=== PATIENT | male | born 1935 | race African-American/Black ===

== ENCOUNTER 2016-11-04 11:28 | Emergency (ER) | payer OTHER ==
[2016-11-04 11:35] VITALS: BP 157/81
[2016-11-04] MEDS ORDERED: BOOSTRIX VACCINE IM ONE (11:36)
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
--- NOTE | 2016-11-04 14:04 | Diag Imaging Result Document ---
PROCEDURE NAME: FINGER(S)-RIGHT - 11/04/2016 RIGHT INDEX FINGER, 3 VIEWS: There are degenerative changes. There is no fracture or dislocation identified. There is no opaque foreign body seen. IMPRESSION: Degenerative changes. No evidence of fracture or dislocation.
== END 2016-11-04 12:30 | disposition home or self-care (01) ==
LOC: P.ED 11:28
DX: S60.121A Contusion of right index finger with damage to nail, initial encounter (principal); S61.210A Laceration without foreign body of right index finger without damage to nail, initial encounter; I50.9 Heart failure, unspecified; I10 Essential (primary) hypertension; J44.9 Chronic obstructive pulmonary disease, unspecified; Z86.73 Personal history of transient ischemic attack (TIA), and cerebral infarction without residual deficits; W23.1XXA Caught, crushed, jammed, or pinched between stationary objects, initial encounter; Z23 Encounter for immunization; Z79.899 Other long term (current) drug therapy; F41.9 Anxiety disorder, unspecified; Z79.51 Long term (current) use of inhaled steroids; Z79.02 Long term (current) use of antithrombotics/antiplatelets; Z82.49 Family history of ischemic heart disease and other diseases of the circulatory system
CPT/HCPCS: 73140; 90471; 90715

== ENCOUNTER 2019-10-22 14:34 | Inpatient (IN) ==
[2019-10-22] MEDS ORDERED: AMIDATE IV ONE (15:00)
--- NOTE | 2019-10-22 15:04 | Diag Imaging Result Doc PS360 ---
EXAM: CT HEAD W/O CONTRAST HISTORY: mental status change TECHNIQUE: CT brain without contrast COMPARISON: 05/27/2019 FINDINGS: No parenchymal hemorrhage. No epidural or subdural hematoma. No subarachnoid hemorrhage. There are chronic microvascular ischemic changes and atrophy. No mass identified on this noncontrasted exam. No hydrocephalus. No sinus opacification. IMPRESSION: 1.No hemorrhage 2.Chronic microvascular ischemic changes and atrophy This exam was performed using automated exposure control, adjustment of mA or kV according to patient size, and/or use of iterative reconstruction technique. Electronically signed by Darryl Da Silva 10/22/2019 3:01 PM
[2019-10-22] MEDS ORDERED: AMIDATE ONE (15:09)
[2019-10-22] MEDS ORDERED: QUELICIN ONE (15:10)
[2019-10-22] MEDS ORDERED: DIPRIVAN 1% IV ONE (15:10)
[2019-10-22] MEDS: DIPRIVAN 1% 1,000 MG/100 ML BOTTLE IV SCH ×2 (15:25→21:55)
[2019-10-22 15:55] LABS: ALLEN TEST YES; BE -10.1 mmoll (-3.0-3.0); BLOOD TYPE ARTERIAL; HCO3-(ACT) 17.1 mmoll (20.0-26.0); O2(CT) 13.4 mL/dL (15.0-23.0); O2HB 97.1 % (95.0-99.0); PCO2(98.6) 31 mmHg (35-45); PO2(98.6) 233 mmHg (60-100); SAMPLE BLOOD; SAO2 99.3 % (95.0-100.0); SRATE 14 BPM; THB 9.4 g/dL (11.5-17.4); TVOL 550 mL
[2019-10-22 15:58] LABS: MODALITY VENTILATOR
[2019-10-22 16:09] LABS: URINE SOURCE CATH
[2019-10-22 16:14] LABS: BASO# 0.03 X1000 (0.0-0.2); BASO% 0.4 % (0.0-0.8); EOS# 0.02 X1000 (0.0-0.7); EOS% 0.3 % (0.0-10.0); HEMOGLOBIN 8.4 g/dL (14.0-18.0); LYMPH# 0.79 X1000 (1.2-3.4); LYMPH% 9.9 % (20.5-51.1); MCH 26.3 PG (27-31); MCHC 32.3 g/dL (33-37); MCV 81.5 FL (81-99); MONO# 0.32 X1000 (0.11-0.59); MPV 8.9 FL (7.4-10.4); NEUT# 6.83 X1000 (1.4-6.5); NEUT% 85.4 % (42.2-75.2); PLT 397 X1000 (130-400); RBC 3.19 XMIL (4.7-6.1); RDW 16.2 % (11.5-14.5); WBC 7.99 X1000 (4.8-10.8)
[2019-10-22 16:14] LABS: BILIRUBIN URINE NEGATIVE (NEGATIVE); BLOOD URINE SMALL (NEGATIVE); COLOR YELLOW; GLUCOSE URINE NEGATIVE (NEGATIVE); KETONE URINE NEGATIVE (NEGATIVE); LEUKOCYTES URINE NEGATIVE (NEGATIVE); NITRITE URINE NEGATIVE (NEGATIVE); PROTEIN URINE 300 mg/dL (NEGATIVE); SP GRAVITY URINE 1.017; TURBIDITY URINE CLEAR (CLEAR); UROBILINOGEN URINE NORMAL (NORMAL)
--- NOTE | 2019-10-22 16:20 | Diag Imaging Result Doc PS360 ---
EXAM: CHEST-PORTABLE HISTORY: intubation TECHNIQUE: Two views COMPARISON: 12/16/2017 FINDINGS: The lungs are well expanded. Endotracheal tube in good position. The heart is not enlarged. The vessels are not distended. There are no infiltrates. No effusion identified. IMPRESSION: The endotracheal tube is in good position. Electronically signed by Darryl Da Silva 10/22/2019 4:17 PM
[2019-10-22 16:41] LABS: UR EPITHELIAL CELLS <10 /HPF (<10); URINE BACTERIA NEGATIVE /HPF; URINE RBC <10 /HPF (<10); URINE WBC <10 /HPF (<10)
[2019-10-22 16:42] LABS: URINE CASTS NONE SEEN; URINE CRYSTALS NONE SEEN; URINE SMALL ROUND CELLS NONE SEEN; URINE YEAST NONE SEEN
[2019-10-22] MEDS ORDERED: QUELICIN IV ONE (16:42)
--- NOTE | 2019-10-22 16:51 | EKG Report ---
Test Performed on : 10/22/2019 4:43:34 PM Test Reason : ams Blood Pressure : / mmHG Vent. Rate : 090 BPM Atrial Rate : 090 BPM P-R Int : 190 ms QRS Dur : 122 ms QT Int : 442 ms P-R-T Axes : 081 -45 074 degrees QTc Int : 540 ms Normal sinus rhythm. Possible Left atrial enlargement Left anterior fascicular block Abnormal ECG When compared with ECG of 16-DEC-2017 09:12, premature atrial complexes. are no longer present Left anterior fascicular block is now present T wave amplitude has increased in Anterior leads QT has lengthened Unconfirmed Result
[2019-10-22 16:54] LABS: ALB/GLOB RATIO 1.1; ALBUMIN 3.8 g/dL (3.5-5.0); CALCIUM 5.8 mg/dL (8.8-10.2); CK INDEX 0.5 (0.0-2.5); CREATININE 10.8 mg/dL (0.7-1.2); INR 1.17; POTASSIUM 6.8 mmol/L (3.5-5.1); PROTIME 15.1 Seconds (11.0-16.0); PTT 28.4 Seconds (22.3-41.8); TOTAL BILIRUBIN 0.49 mg/dL (0.20-1.00); TOTAL PROTEIN 7.4 g/dL (6.3-8.3)
[2019-10-22] MEDS ORDERED: HUMULIN R IV ONE (16:58)
[2019-10-22] MEDS ORDERED: D50W 500 ML IV SCH (17:00)
[2019-10-22] MEDS ORDERED: NS 1,000 ML IV ONE (17:01)
[2019-10-22] MEDS ORDERED: LASIX IV ONE (17:01)
[2019-10-22] MEDS ORDERED: D50W SYRINGE IV ONE (17:15)
[2019-10-22] MEDS ORDERED: CALCIUM GLUCONATE IV PUSH ONE ×2 (17:24→21:34)
[2019-10-22] MEDS ORDERED: ALBUTEROL NEB INH ONE (17:26)
[2019-10-22] MEDS ORDERED: ALBUTEROL 0.5% INH CONC FOR HYPERKALEMIA INH ONE (17:32)
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
[2019-10-22] MEDS ORDERED: ZOFRAN IV PRN (18:25)
[2019-10-22] MEDS ORDERED: TYLENOL PO PRN (18:25)
[2019-10-22] MEDS ORDERED: CARDENE 40 MG/NS 40 MG/200 ML PIGGYBACK IV SCH (19:00)
[2019-10-22] MEDS ORDERED: CARDENE 20 MG/NS 20 MG/200 ML PIGGYBACK IV SCH (19:00)
--- NOTE | 2019-10-22 19:00 | HISTORY AND PHYSICAL ---
ADDENDUM: This is an addendum to the history and physical dictated by the nurse practitioner. I agree with most components of the history, physical, assessment and plan. In brief, Mr. Chapman is an 84-year-old man with past medical history of chronic kidney disease stage 5, chronic GERD, essential hypertension, COPD, benign prostatic hypertrophy, transient ischemic attack and gout, who is brought into the hospital by ambulance because of altered mental status. Apparently, the patient's sister found him altered. The patient lives with his who has Alzheimer dementia. In the emergency room when the patient arrived, he was found to be obtunded and had a right-sided gaze, so he was intubated for airway protection. The history is limited since the patient's sister is not available. I got some historical data after talking to the patient's brother on the phone. The patient is intubated, not responding. PHYSICAL EXAMINATION: VITAL SIGNS: Current temperature of 98.7 degrees, pulse 99, respiratory rate 16, blood pressure 180/110. He is saturating 100% on 30% mechanical ventilation. HEENT: On physical examination, he has pupils bilaterally briskly reacting to light. He has some crusting of dry blood around the right nostril. Oral cavity is moist. He has endotracheal tube. LUNGS: Air entry bilaterally equal. No wheeze, rhonchi or crackles. HEART: S1, S2 normal. Tachycardic. No murmur, rub or gallop. ABDOMEN: Scaphoid, soft, nontender. Active bowel sounds. EXTREMITIES: No lower extremity edema. GENITOURINARY: He has urine catheter. NEUROLOGICAL: On examination I could not appreciate an obvious facial droop, though he has endotracheal tube and his head is tilted towards the right. He is on propofol right now. He is withdrawing to painful stimuli in bilateral lower extremities. He is flickering bilateral lower extremities when I apply painful stimuli on the right upper extremity. He does not have any response on painful stimuli on the left lower extremity. I could not elicit biceps jerk in both upper extremities. His knee jerks are brisk bilaterally. Babinski has a plantar flexion bilaterally. LABORATORY DATA: Labs suggestive of hemoglobin of 8.4, platelets 97,000. His pH is 7.30, pO2 of 233, pCO2 of 31. He has hyperkalemia, elevated creatinine, hypocalcemia, elevated troponin and lactic acidosis. ASSESSMENT AND PLAN: 1. Acute encephalopathy, likely metabolic in the setting of profound uremia. Seizure due to uremia is also a possibility. Head CT was unremarkable; however, acute ischemic stroke is also a possibility. 2. Acute respiratory failure, likely because of acute encephalopathy and multiple metabolic derangement, status post intubation. Continue mechanical ventilation with propofol. 3. [id number] kidney disease, anion gap metabolic acidosis, hyperkalemia, hypocalcemia. We will consult Nephrology and we will give him insulin D50, albuterol, calcium gluconate, and followup stat repeat BMP. 4. Lactic acidosis, type 2 myocardial infarction. 5. Normocytic anemia. 6. Hypertension. 7. The patient's condition is critical. Forty minutes of critical care time was spent taking of this patient. I called the patient's brother and informed him about critical condition. Code status is Full Code. cc: Magno Wang MD
[2019-10-22] MEDS: PULMICORT INH SCH (19:18)
[2019-10-22] MEDS: ATROVENT NEB INH SCH ×2 (19:19→23:55)
[2019-10-22] MEDS: XOPENEX NEB INH SCH ×2 (19:19→23:54)
[2019-10-22 19:34] LABS: HEMOGLOBIN A1C 5.5 % (4.8-6.0)
[2019-10-22] MEDS ORDERED: MAGNESIUM SULFATE 2 GM/S.W.I. 2 GM/50 ML IVPB IV ONE (19:49)
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
--- NOTE | 2019-10-22 20:12 | NEPHROLOGY CONSULTATION ---
DATE: 10/22/2019 REASON FOR CONSULTATION: Hyperkalemia and renal failure. HISTORY OF PRESENT ILLNESS: Mr. Chapman is an 84-year-old man with peripheral vascular disease, hypertension and CKD. On his last encounter with us late last year, his creatinine was over 4 and we strongly urged him to pursue vein mapping and access placement. He defer that until after the first of the year. We have not seen him again. He currently is intubated and sedated. The ER notes suggest he came in with altered mental status, and he was found at home with right-sided gaze preference and overall decreased responsiveness. His initial evaluation found blood pressure of 204/120 with a heart rate of 105, respirations 16. He was afebrile. Because of his initial neurologic status and his medical illness, he was intubated. He received treatment with Lasix and insulin for a potassium of 6.8. BUN was 117, creatinine 10.8 with anion gap of 26. Initial imaging included chest x-ray and CT of the head. CT had only chronic changes. Chest x- ray: No infiltrates and no pulmonary edema is described. He does have cardiac enlargement. His initial EKG has peaked T-waves. I was contacted by phone approximately an hour and 15 minutes ago. The patient was subsequently treated with inhaled albuterol, and repeat labs and EKG were ordered. EKG is being performed at the time of my arrival, and his peaked T waves have resolved. I do not see that he received IV calcium in the initial resuscitation. He did receive IV fluid volume expansion. He did, in fact, receive a single ampule of calcium gluconate 1 g. PAST MEDICAL HISTORY: As above. MEDICATIONS: Home medications include clopidogrel, furosemide, dutasteride , clonidine, colchicine, alprazolam, dexamethasone, cyclobenzaprine, Augmentin, cetirizine, prednisone, trimethoprim sulfa and tramadol. These medicines are listed in the chart in the emergency room note. The date on the trimethoprim sulfa was from 12/15/2018. FAMILY HISTORY: Not otherwise obtainable. SOCIAL HISTORY: Not otherwise obtainable. REVIEW OF SYSTEMS: Not otherwise obtainable. PHYSICAL EXAMINATION: Blood pressure 180/112, heart rate 99, respirations 16, temperature 98.7 degrees. Generally, thin elderly black male, intubated and sedated. Having rigors. Conjunctivae are pink. Pupils are equal. Oropharynx not examined. External jugular veins are distended but the internal wave is not visible. Heart is irregular, but rate controlled. Mildly tachycardic. No rubs. Lungs have equal excursion, equal breath sounds. No crackles or wheezes. Abdomen is soft, with voluntary muscle use. There is a lower abdominal midline incision. Extremities have no edema, clubbing or cyanosis. IMPRESSION AND PLAN: Chronic kidney disease stage 5, complicated by hyperkalemia, metabolic acidosis and altered mental status. We will focus on his volume management and his potassium management. If he is stable overnight, we can consider dialysis if the family is agreeable to that. I have ordered repeated doses of intravenous insulin and inhaled albuterol for the overnight period. Repeat labs now and again at 8 p.m. I have reviewed the ordered medications. No changes are required at this time. I will treat his severe hypertension with nicardipine. cc: Chavez Garcia MD
[2019-10-22] MEDS: SOLU-MEDROL IV SCH (20:34)
[2019-10-22 21:39] LABS: ALBUMIN 2.9 g/dL (3.5-5.0); CALCIUM 5.4 mg/dL (8.8-10.2); CREATININE 9.6 mg/dL (0.7-1.2); PHOSPHORUS 5.5 mg/dL (2.7-4.5); POTASSIUM 5.4 mmol/L (3.5-5.1)
[2019-10-22] MEDS: HEPARIN SUBQ SCH (22:00)
[2019-10-22] MEDS ORDERED: ATIVAN IV PRN (22:26)
[2019-10-22] MEDS: KEPPRA 500 MG in NS 100 ML IV SCH (22:41)
[2019-10-22] MEDS: ALBUTEROL 0.5% INH CONC FOR HYPERKALEMIA INH SCH (22:45)
[2019-10-22] MEDS: D50W SYRINGE IV SCH (22:51)
[2019-10-22] MEDS: HUMULIN R IV SCH (22:56)
[2019-10-23] MEDS ORDERED: MAGNESIUM SULFATE 2 GM/S.W.I. 2 GM/50 ML IVPB IV ONE (00:30)
--- NOTE | 2019-10-23 02:16 | EKG Report ---
Test Performed on : 10/22/2019 6:07:09 PM Test Reason : chest pain Blood Pressure : / mmHG Vent. Rate : 133 BPM Atrial Rate : 133 BPM P-R Int : 000 ms QRS Dur : 080 ms QT Int : 334 ms P-R-T Axes : 000 -34 080 degrees QTc Int : 497 ms Atrial fibrillation. with rapid ventricular response. Left axis deviation Nonspecific ST and T wave abnormality Abnormal ECG When compared with ECG of 22-OCT-2019 18:05, (Unconfirmed) Atrial fibrillation. has replaced Sinus rhythm. Unconfirmed Result
[2019-10-23] MEDS: SOLU-MEDROL IV SCH (03:03)
[2019-10-23] MEDS: DIPRIVAN 1% 1,000 MG/100 ML BOTTLE IV SCH ×4 (03:04→23:31)
[2019-10-23] MEDS: ATROVENT NEB INH SCH ×6 (03:27→23:09)
[2019-10-23] MEDS: XOPENEX NEB INH SCH ×6 (03:27→23:09)
[2019-10-23 03:32] LABS: CALCIUM 5.8 mg/dL (8.8-10.2); CREATININE 10.2 mg/dL (0.7-1.2); POTASSIUM 5.9 mmol/L (3.5-5.1)
[2019-10-23] MEDS: HUMULIN R IV SCH ×3 (03:43→23:24)
[2019-10-23] MEDS: D50W SYRINGE IV SCH ×3 (03:43→23:24)
[2019-10-23] MEDS: ALBUTEROL 0.5% INH CONC FOR HYPERKALEMIA INH SCH ×3 (03:50→23:08)
[2019-10-23 04:34] LABS: ALLEN TEST YES; BE -12.9 mmoll (-3.0-3.0); BLOOD TYPE ARTERIAL; HCO3-(ACT) 14.9 mmoll (20.0-26.0); METHB 1.4 % (0.0-1.5); O2(CT) 9.7 mL/dL (15.0-23.0); O2HB 96.7 % (95.0-99.0); PCO2(98.6) 26 mmHg (35-45); PO2(98.6) 173 mmHg (60-100); SAMPLE BLOOD; SAO2 98.6 % (95.0-100.0); SRATE 16 BPM; THB 6.8 g/dL (11.5-17.4); TVOL 550 mL; pH(98.6) 7.29 (7.35-7.45)
[2019-10-23 04:40] LABS: MODALITY VENTILATOR
[2019-10-23 06:41] LABS: HEMATOCRIT 23.2 % (42.0-52.0); HEMOGLOBIN 7.5 g/dL (14.0-18.0); MCHC 32.3 g/dL (33-37); MCV 83.5 FL (81-99); MPV 9.1 FL (7.4-10.4); RBC 2.78 XMIL (4.7-6.1); RDW 16.4 % (11.5-14.5); WBC 8.08 X1000 (4.8-10.8)
[2019-10-23 07:06] LABS: ALB/GLOB RATIO 0.8; ALBUMIN 3.2 g/dL (3.5-5.0); CALCIUM 5.9 mg/dL (8.8-10.2); CREATININE 10.1 mg/dL (0.7-1.2); POTASSIUM 6.1 mmol/L (3.5-5.1); TOTAL BILIRUBIN 0.27 mg/dL (0.20-1.00); TOTAL PROTEIN 7.2 g/dL (6.3-8.3)
[2019-10-23] MEDS ORDERED: CALCIUM GLUCONATE 4.65 MEQ in NS 50 ML IV ONE ×2 (07:32→13:03)
[2019-10-23] MEDS ORDERED: HUMALOG IV ONE (07:37)
[2019-10-23] MEDS ORDERED: D50W SYRINGE IV ONE (07:37)
[2019-10-23] MEDS ORDERED: ALBUTEROL 0.5% INH CONC FOR HYPERKALEMIA INH ONE (07:37)
--- NOTE | 2019-10-23 07:52 | Diag Imaging Result Doc PS360 ---
EXAM: CHEST-PORTABLE - 10/23/2019 HISTORY: respiratory failure TECHNIQUE: Portable chest COMPARISON: 10/22/2019 FINDINGS: There is an endotracheal tube with its tip approximately 4.3 cm above the spenser, although the tip of the tube is partially obscured by overlying metallic snap. There is a nasogastric tube which can be followed to the proximal stomach, but the tip of the nasogastric tube is located below the bottom the image. Heart size is normal. The lungs appear essentially clear of acute changes. There is no pleural effusion or pneumothorax identified. IMPRESSION: No evidence of acute disease. Electronically signed by Bhanu Amezquita 10/23/2019 7:50 AM
[2019-10-23] MEDS: LACTULOSE NG SCH ×3 (08:21→20:07)
[2019-10-23] MEDS: KEPPRA 500 MG in NS 100 ML IV SCH (08:23)
[2019-10-23] MEDS: HEPARIN SUBQ SCH ×2 (08:23→20:08)
[2019-10-23] MEDS ORDERED: PRILOSEC NG ONE (09:12)
--- NOTE | 2019-10-23 09:40 | PROGRESS NOTE ---
DATE: 10/23/2019 INTERVAL HISTORY: No acute events overnight. He has been tachycardic with pulse of 115. He has been saturating well on 30% FiO2. His hyperkalemia and hypocalcemia are currently being treated. SUBJECTIVE: He is intubated, not responding. He is on propofol. VITALS: Temperature of 98.7 degrees, pulse 110, respiratory rate 20, blood pressure 124/71, he is saturating 100% on 30% FiO2. PHYSICAL EXAMINATION: Does not appear in acute distress. Pupils are bilaterally equal, briskly reacting. Oral cavity is moist. Lungs: Air entry bilaterally equal. No wheeze, rhonchi, or crackles. S1, S2 normal. Tachycardic. No murmur, rub, or gallop. Abdomen: Soft, scaphoid. Active bowel sounds. No lower extremity edema. He has a urine catheter, endotracheal tube. He is over-breathing the ventilator. He has good cough. He is withdrawing to painful stimuli, bilateral lower extremities. However, considering he has been on propofol, responses on the upper extremities have been inconsistent, though he did flicker on right upper extremity. LABORATORY DATA: Hemoglobin of 7.5, platelets 335,000. PH of 7.29, PO2 of 173, he is saturating 100%. Chemistry suggestive of hyperkalemia with potassium of 6.1, creatinine of 10.1, blood glucose 164, phosphorus of 6.5. Troponin is 194. MICROBIOLOGY: Blood culture and sputum culture are in lab. IMAGING: Chest x-ray this morning has no evidence of acute disease. ASSESSMENT AND PLAN: 1. Acute encephalopathy, likely metabolic due to profound uremia. Seizure due to uremia and cerebrovascular accident are also a possibility. Head CT on presentation was unremarkable. In the future, I may consider repeat head CT. Followup echocardiogram and ultrasound of carotids. I will start him on high-intensity statin and baby aspirin. I will keep him on propofol for mechanical ventilation as well as it may also help with his suspected seizure, if at all. 2. Acute respiratory failure because of acute encephalopathy, multiple metabolic derangement, status post intubation. Continue mechanical ventilation and propofol for sedation. I will add proton pump inhibitors for stress ulcer prophylaxis and continue heparin for deep venous thrombosis prophylaxis. 3. Acute on chronic kidney disease, anion gap metabolic acidosis, hyperkalemia, hypocalcemia. I will give additional insulin, D50, lactulose, albuterol inhalation. Follow up with repeat BMP. Appreciate nephrology recommendation for management of electrolyte disturbance. 4. Lactic acidosis, likely in the setting of multiple metabolic derangements. I will continue to monitor it. He has not been hypotensive. 5. Normocytic anemia due to chronic kidney disease, essential hypertension, currently stable. I will monitor CBC. He has been off nicardipine drip since yesterday night. 6. Type 2 myocardial infarction, likely in the setting of acute kidney injury and multiple metabolic derangements. His electrocardiogram did not have any ST elevations to suggest acute coronary syndrome. Continue to monitor him and follow up echocardiogram. I will stop Nicardipine drip since he hasn't required it for >12 hours now. 7. Disposition. I will continue to monitor patient in critical care. Plan of care was discussed with the patient's brother at bedside. All of his questions have been answered. Thirty-five minutes of critical care time have been spent in taking care of this patient. cc: Magno Wang MD MTDD
[2019-10-23] MEDS: PULMICORT INH SCH ×2 (11:48→19:51)
[2019-10-23 12:42] LABS: CALCIUM 6.1 mg/dL (8.8-10.2); CREATININE 11.2 mg/dL (0.7-1.2); POTASSIUM 5.4 mmol/L (3.5-5.1)
[2019-10-23] MEDS: PHOSLO NG SCH ×2 (13:45→17:12)
[2019-10-23] MEDS ORDERED: VANCOMYCIN IV PER PHARMACY MISC SCH (14:15)
--- NOTE | 2019-10-23 14:29 | NEPHROLOGY PROGRESS NOTE ---
DATE: 10/23/2019 SUBJECTIVE: He is sedated on the ventilator. Apparently had seizures early. OBJECTIVE: Vital Signs: Blood pressure 129/85, heart rate 116, respirations 16. Afebrile. General: Sedated, unresponsive. Pupils are equal, somewhat constricted. Corneal arcus present. Neck veins are not appreciated. Trachea is midline. Heart is regular. No rubs. Lungs: Equal. No crackles or wheezes. Abdomen: Soft, nontender. Bowel sounds diminished. No organomegaly. Extremities: 1+ edema. No clubbing or cyanosis. IMPRESSION: Chronic kidney disease stage 5. Complicated by acidosis and hyperkalemia. Hyperkalemia is improved. Acidosis is complicated with low-grade lactic acidosis as well as gap and non-gap components of a metabolic acidosis related to his renal failure, pH is 7.29 with appropriate compensation. I have spoken with the family. His sister Inell. She is the one that found him yesterday unresponsive and she stated he was "foaming at the mouth" and she felt that he just had a seizure. She states that he has never made any indication that he would not accept renal replacement therapy and they have a brother who also has renal failure and has been through transplantation after being on hemodialysis for years. I have spoken with Dr. Wesley who will help with access and we will begin with HERNAN tomorrow. I will use Lokelma through the day today and had a sodium bicarbonate drip. cc: Chavez Garcia MD
[2019-10-23] MEDS ORDERED: VANCOMYCIN 1 GM/NS 1 GM/250 ML IVPB IV SCH (16:00)
[2019-10-23] MEDS: SODIUM BICARBONATE 8.4% 150 MEQ in D5W 1,000 ML IV SCH (16:01)
[2019-10-23] MEDS: LOKELMA POWDER PACKET PO SCH ×2 (16:02→17:12)
[2019-10-23] MEDS: ASPIRIN NG SCH (16:19)
[2019-10-23] MEDS: CATAPRES NG SCH ×2 (16:19→20:08)
[2019-10-23] MEDS: LABETALOL IV PRN (16:26)
--- NOTE | 2019-10-23 16:58 | Diag Imaging Result Doc PS360 ---
EXAM: CHEST-PORTABLE - 10/23/2019 HISTORY: ETT tube placement TECHNIQUE: Portable chest COMPARISON: 10/23/2019 FINDINGS: There is an endotracheal tube with its tip located 5.5 cm above the spenser. The tip of the nasogastric tube is located below the bottom the image. The lungs appear essentially clear. There is no substantial pleural effusion or pneumothorax identified. Heart size is normal. IMPRESSION: Tip of endotracheal tube in satisfactory position 5.5 cm above the spenser. No acute changes otherwise. Electronically signed by Bhanu Amezquita 10/23/2019 4:55 PM
--- NOTE | 2019-10-23 17:02 | ECHO REPORT ---
ORDER DATE: 10/23/2019 INDICATION: Respiratory failure, congestive heart failure. FINDINGS: 1. Right heart structures are difficult to visualize. Overall appears to be normal RV systolic function. Right atrium difficult to visualize. Mild tricuspid regurgitation. Difficult evaluation of RV systolic pressure. 2. Left atrium appears normal in size. 3. There is no mitral valve prolapse. Mild mitral regurgitation. 4. The left ventricle appears to be normal in size with no obvious segmental abnormalities. This is difficult quality study but the ejection fraction is greater than 55%. There does not appear to be any evidence of left ventricular hypertrophy. 5. Aortic cusps are thickened but appear to open reasonably well. I do not see any significant degree of aortic insufficiency or suggestion of stenosis by Doppler. 6. Aorta appears normal in visualized segments. 7. No pericardial effusion seen. cc: MD Ena Mcgarry CRNP
--- NOTE | 2019-10-23 17:11 | EKG Report ---
Test Performed on : 10/23/2019 09:30:04 AM Test Reason : Follow up EKG for elevated troponins Blood Pressure : / mmHG Vent. Rate : 120 BPM Atrial Rate : 120 BPM P-R Int : 120 ms QRS Dur : 078 ms QT Int : 362 ms P-R-T Axes : 078 031 051 degrees QTc Int : 511 ms Sinus tachycardia. Moderate voltage criteria for LVH, may be normal variant Nonspecific ST and T wave abnormality Abnormal ECG When compared with ECG of 23-OCT-2019 04:07, (Unconfirmed) premature supraventricular complexes. are no longer present Nonspecific T wave abnormality now evident in Inferior leads Confirmed by Rinku Melgar MD ([id number]) on 10/25/2019 9:43:46 PM
--- NOTE | 2019-10-23 17:13 | EKG Report ---
Test Performed on : 10/23/2019 04:07:42 AM Test Reason : Blood Pressure : / mmHG Vent. Rate : 125 BPM Atrial Rate : 125 BPM P-R Int : 176 ms QRS Dur : 074 ms QT Int : 352 ms P-R-T Axes : 082 029 085 degrees QTc Int : 508 ms Sinus tachycardia. with premature supraventricular complexes. Nonspecific ST and T wave abnormality Abnormal ECG When compared with ECG of 22-OCT-2019 18:07, (Unconfirmed) Sinus rhythm. has replaced Atrial fibrillation. Unconfirmed Result
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
[2019-10-23 19:05] LABS: CREATININE 10.9 mg/dL (0.7-1.2); POTASSIUM 7.5 mmol/L (3.5-5.1)
[2019-10-23] MEDS: PERIDEX MT SCH (20:07)
[2019-10-23] MEDS: LIPITOR NG SCH (20:08)
[2019-10-23] MEDS: CALCIUM GLUCONATE 1 GM in NS 50 ML IV SCH ×2 (20:16→23:24)
[2019-10-24] MEDS: ATROVENT NEB INH SCH ×6 (03:35→23:08)
[2019-10-24] MEDS: XOPENEX NEB INH SCH ×6 (03:40→23:08)
[2019-10-24] MEDS: DIPRIVAN 1% 1,000 MG/100 ML BOTTLE IV SCH ×3 (03:50→21:43)
[2019-10-24] MEDS: SODIUM BICARBONATE 8.4% 150 MEQ in D5W 1,000 ML IV SCH ×2 (03:50→19:01)
[2019-10-24 04:37] LABS: ALLEN TEST YES; BE -6.3 mmoll (-3.0-3.0); BLOOD TYPE ARTERIAL; METHB 1.6 % (0.0-1.5); O2(CT) 8.7 mL/dL (15.0-23.0); O2HB 96.3 % (95.0-99.0); PCO2(98.6) 33 mmHg (35-45); PO2(98.6) 119 mmHg (60-100); SAMPLE BLOOD; SAO2 98.5 % (95.0-100.0); SRATE 16 BPM; THB 6.2 g/dL (11.5-17.4); TVOL 550 mL; pH(98.6) 7.36 (7.35-7.45)
[2019-10-24 04:38] LABS: MODALITY VENTILATOR
[2019-10-24 04:48] LABS: HEMOGLOBIN 6.3 g/dL (14.0-18.0); MCH 26.9 PG (27-31); MCHC 33.2 g/dL (33-37); MCV 81.2 FL (81-99); RBC 2.34 XMIL (4.7-6.1); RDW 16.4 % (11.5-14.5); WBC 12.18 X1000 (4.8-10.8)
[2019-10-24] MEDS: CALCIUM GLUCONATE 1 GM in NS 50 ML IV SCH (05:05)
[2019-10-24 05:28] LABS: ALBUMIN 2.8 g/dL (3.5-5.0); CALCIUM 6.7 mg/dL (8.8-10.2); CREATININE 10.8 mg/dL (0.7-1.2); MAGNESIUM 2.1 mg/dL (1.5-2.7); PHOSPHORUS 8.9 mg/dL (2.7-4.5); POTASSIUM 5.7 mmol/L (3.5-5.1)
[2019-10-24] MEDS: HUMULIN R IV SCH (05:33)
[2019-10-24] MEDS: D50W SYRINGE IV SCH (05:33)
[2019-10-24] MEDS: ALBUTEROL 0.5% INH CONC FOR HYPERKALEMIA INH SCH (05:51)
[2019-10-24] MEDS ORDERED: NS 2,000 ML MISC PRN (06:32)
[2019-10-24] MEDS: PRILOSEC NG SCH (06:46)
[2019-10-24] MEDS: PULMICORT INH SCH ×2 (08:24→19:55)
[2019-10-24] MEDS: PERIDEX MT SCH ×2 (09:00→21:44)
[2019-10-24] MEDS: LACTULOSE NG SCH ×2 (09:00→21:44)
[2019-10-24] MEDS ORDERED: NS 500 ML ONE (09:00)
[2019-10-24] MEDS: CATAPRES NG SCH ×2 (09:01→21:44)
[2019-10-24] MEDS: ASPIRIN NG SCH (09:01)
[2019-10-24] MEDS: LOKELMA POWDER PACKET PO SCH ×2 (09:01→13:28)
[2019-10-24] MEDS: PHOSLO NG SCH ×3 (09:01→17:36)
[2019-10-24] MEDS: HEPARIN SUBQ SCH ×2 (09:01→21:44)
[2019-10-24] MEDS ORDERED: XYLOCAINE 1%/EPI 1:100,000 ONE (09:56)
[2019-10-24] MEDS ORDERED: NS 250 ML ONE (09:56)
--- NOTE | 2019-10-24 10:14 | PROGRESS NOTE ---
DATE: 10/24/2019 INTERVAL HISTORY: No acute events overnight. SUBJECTIVE: Mr. Chapman is intubated, not in any acute distress. Yesterday, while performing echocardiogram, his ventilator got disconnected, and it looked like his endotracheal tube came out a couple of centimeters. A chest x-ray was done, which had suggested the endotracheal tube was still in the trachea, about 4 cm from the spenser. He has been saturating well. OBJECTIVE: Vital Signs: Temperature 97.3 degrees, pulse 94, respiratory rate 16, blood pressure 129/74, he is saturating 100% on 30% FiO2. General: Does not appear in any acute distress. HEENT: Oral cavity is moist. Lungs: Air entry bilaterally equal. No wheeze, rhonchi, crackles. Cardiovascular: S1, S2 normal. Not tachycardic. No murmur or gallop. Abdomen: Soft, scaphoid. Active bowel sounds. No hepatosplenomegaly. Extremities: No lower extremity edema. He has endotracheal tube, urine catheter, and NG tube. He is occasionally over breathing the ventilator. Neurologic: Pupils are bilaterally briskly reacting to light. Corneal reflex is present both eyes. He has intact cough. He is withdrawing to painful stimuli, bilateral upper and lower extremities. His biceps and knee jerks are 1+. Babinski response was inconsistent. LABORATORY DATA: WBC of 12,000, hemoglobin of 6.3, platelets 260,000. His pH is 7.36, PO2 of 119, pCO2 of 33. He continues to have elevated creatinine of 10.8, hypocalcemia of 6.7. MICROBIOLOGY: One of the two blood cultures is growing gram-positive cocci. The final report is pending. IMAGING: No new imaging today. ASSESSMENT AND PLAN: 1. Acute encephalopathy on presentation, likely metabolic due to profound uremia. Seizures due to uremia and cerebrovascular accident are also a possibility, though head CT on presentation was unremarkable. Follow up echocardiogram and ultrasound of carotids. Continue low-dose aspirin and high-intensity statin. Based on his course, he may need a repeat CT scan in the next 24 to 48 hours if his mental status does not improve. 2. Acute respiratory failure because of acute encephalopathy and multiple metabolic derangements. He was intubated in the emergency room. Continue mechanical ventilation and sedation with intravenous propofol. Continue heparin for deep venous thrombosis prophylaxis, and proton pump inhibitors for stress ulcer prophylaxis, and chlorhexidine for ventilator-associated pneumonia prophylaxis. 3. Acute on chronic kidney disease stage 5, anion gap metabolic acidosis, hyperkalemia, hypocalcemia, and hyperphosphatemia. Continue intravenous bicarbonate drip as per Nephrology recommendation. I started him on calcium acetate through nasogastric tube. He is likely to undergo dialysis catheter placement later today. Appreciate Nephrology recommendation. 4. Gram-positive bacteremia. Only 1 of the 2 cultures were positive. I will follow up final results. Continue intravenous vancomycin dosed per pharmacy. 5. Normocytic anemia due to chronic kidney disease. His hemoglobin dropped. Nephrology team has already ordered him on blood transfusion. I will follow up with daily CBC. 6. Essential hypertension. Continue his home clonidine and intravenous labetalol as needed. 7. Type 2 myocardial infarction on presentation. His electrocardiogram did not have acute ST elevation or significant ischemia-related changes. I will continue to monitor him. Follow up with echocardiogram. 8. Disposition. Mr. Chapman' condition remains critical. 35 minutes of critical care time was spent in taking care of this patient. I will start him on tube feeds. Considering uremic seizure was one of the possibilities, I would keep him on intravenous propofol until he gets dialysis or if we plan a spontaneous breathing trial. Yesterday, I had a detailed discussion about his critical condition with his brother at bedside. All of his questions were satisfactorily answered. cc: Magno Wang MD [facility]
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
--- NOTE | 2019-10-24 15:49 | PROVIDER PROGRESS NOTE ---
Progress Note Subjective: he remains intubated and sedated. He has a fine tremor to the right arm every few seconds. No family at bedside. Objective: 97.0, pulse 96, respirations 16, blood pressure 117/64, O2 sat 100% on 30% FiO2 mechanical ventilation. General: elderly -[place]ian male lying in bed in no acute distress. HEENT: normocephalic, atraumatic. Pupils equal and reactive, Arcus senilis to OU. Mucous membranes dry. Trachea midline. Skin: warm and dry. Neck: supple, no JVD observed. Cardiovascular: distance heart tones noted to the mediastinum. S1S2, regular rate and rhythm. No murmur or gallop noted. Respiratory: lung sounds clear anteriorly. Abdomen: soft, nontender, nondistended. HypoActive bowel sounds noted. : Non inspected, mcelroy in place. Extremities: Right upper extremity edema with Trace edema to hips. Neurological: sedated Labs: WBC 12.18, hemoglobin 6.3, hematocrit 19.0, platelet count 260, sodium 144, potassium 5.7, chloride 104, carbon dioxide 17, BUN 114, creatinine 10.8, calcium 6.7, albumin 2.8. Intake 2379, output 390. Impression: Chronic kidney disease stage 5. Complicated by acidosis and hyperkalemia. He is scheduled to have a tunneled catheter placed today where he will start slow low efficiency Dialysis with a 2 L ultrafiltration attempt in eight hours. Hyperkalemia. Lokelma in place. SLED today for helping management. Blood pressure. In target. Fluid volume. Euvolemic. Anemia. 2 units PRBC ordered. Anion gap acidosis. Sodium bicarbonate drip in place. Nutrition. Defer to primary. Medication review. Phoslo started. Lactulose?
[2019-10-24] MEDS: LIPITOR NG SCH (21:44)
--- NOTE | 2019-10-25 00:49 | OPERATIVE NOTE ---
PROCEDURE DATE: 10/24/2019 PREOPERATIVE DIAGNOSIS: End-stage renal disease. POSTOPERATIVE DIAGNOSIS: End-stage renal disease. PROCEDURE PERFORMED: Ultrasound-guided right internal jugular vein port placement with fluoroscopy less 1 hour. ESTIMATED BLOOD LOSS: 10 mL. SPECIMEN: None. ANESTHESIA: General. OPERATIVE FINDINGS: 1. Ultrasound of the right neck showed a large internal jugular vein with no evidence of intraluminal thrombus. 2. Final fluoroscopic image showed good position of the catheter in the superior vena cava-atrial junction with no kinking of the catheter. INDICATIONS: A gentleman who is progressed towards end-stage renal disease, has volume overload and needs urgent dialysis. The risks, benefits and alternatives were discussed with the patient's family and they elected to proceed. Initially they were unavailable, but the family did consent to the procedure prior to going to the operating room. DESCRIPTION OF PROCEDURE: He was taken to the operating room and positioned on the OR table. His bilateral neck and chest was prepped with Betadine and draped in the usual fashion. After a time- out focused ultrasound of the right neck was performed. He was placed in Trendelenburg and we accessed the vein on the first pass. Dark nonpulsatile venous blood was noted on return, the wire threaded easily and was confirmed to course directly in the vein with the ultrasound. We confirmed on that it was on the right side of the heart with fluoroscopy. At this point an 18 cm curve tipped catheter was chosen and tunneled between the incision in the chest and the incision made large in the neck. We serially dilated the tract, ending with a peel-away sheath, and the catheter was advanced and it was continued to be in good position. We confirmed both ports, withdrew blood and flushed without resistance. It was in good position. There was no evidence of pneumothorax, and there was no other complication. It was secured with nylon suture. Both incisions were closed with 4-0 Monocryl. Dermabond and Tegaderm was applied. No complications. He was transferred back to the ICU on the ventilator. cc: Flavio Barba MD
[2019-10-25] MEDS: DIPRIVAN 1% 1,000 MG/100 ML BOTTLE IV SCH ×3 (01:38→10:35)
[2019-10-25] MEDS: XOPENEX NEB INH SCH ×6 (03:39→22:35)
[2019-10-25] MEDS: ATROVENT NEB INH SCH ×6 (03:39→22:35)
[2019-10-25 04:48] LABS: ALLEN TEST YES; BE 0.3 mmoll (-3.0-3.0); BLOOD TYPE ARTERIAL; HCO3-(ACT) 25.2 mmoll (20.0-26.0); PCO2(98.6) 38 mmHg (35-45); PO2(98.6) 109 mmHg (60-100); SAMPLE BLOOD; SRATE 16 BPM; TVOL 550 mL; pH(98.6) 7.42 (7.35-7.45)
[2019-10-25 04:50] LABS: MODALITY VENTILATOR
[2019-10-25] MEDS: PRILOSEC NG SCH (06:13)
[2019-10-25 06:20] LABS: HEMATOCRIT 25.8 % (42.0-52.0); HEMOGLOBIN 8.5 g/dL (14.0-18.0); MCH 27.4 PG (27-31); MCHC 32.9 g/dL (33-37); MCV 83.2 FL (81-99); MPV 10.1 FL (7.4-10.4); RBC 3.1 XMIL (4.7-6.1); WBC 10.05 X1000 (4.8-10.8)
[2019-10-25] MEDS ORDERED: NS 2,000 ML MISC PRN (06:24)
--- NOTE | 2019-10-25 06:37 | Diag Imaging Result Doc PS360 ---
EXAM: CHEST-PORTABLE HISTORY: abnormal exam TECHNIQUE: Single view COMPARISON: 10/23/2019 FINDINGS: No change in the endotracheal tube or the nasogastric tube. A double lumen right jugular line has been placed. The tip is near the right atrium. No pneumothorax. No cardiomegaly. No pulmonary edema. No consolidation. No effusions identified. IMPRESSION: No postprocedural pneumothorax. Electronically signed by Darryl Da Silva 10/25/2019 6:35 AM
--- NOTE | 2019-10-25 06:53 | PULMONOLOGY PROGRESS NOTE ---
DATE: 10/24/2019 SUBJECTIVE: The patient is poorly responsive but is on sedation. He has not yet undergone dialysis. OBJECTIVE: Vital Signs: BP 120/68, heart rate 98, respiratory rate 16, oxygen saturation 100%. HEENT: Pupils are equal. Oropharynx appears clear. Neck is supple. Chest reveals coarse crackles bilaterally. Cardiac Examination: S1, S2. Abdomen is soft. Extremities are without edema. Laboratories: Arterial blood gas reveals a pH of 7.36, pCO2 of 33, PO2 of 119, with a normal lactate. White blood count 12.18, hemoglobin 6.3, platelet count 260,000. Sodium 144, potassium 5.7, chloride 104, bicarbonate 10, BUN 114, creatinine 10.8. IMPRESSION: An 84-year-old with: 1. Acute hypoxemic respiratory failure. 2. Acute on chronic kidney disease. 3. Metabolic encephalopathy. 4. Hyperkalemia. 5. Anemia. PLAN: 1. Continue mechanical ventilation pending dialysis and improvement in mental status. 2. Anticipate transfusing 2 units of packed red blood cells today. 3. Initiate hemodialysis per Dr. Garcia. 4. Guarded prognosis, given age. TIME SPENT IN CRITICAL CARE MANAGEMENT: 35 minutes. cc: Ruben Marte MD
[2019-10-25 07:19] LABS: ALBUMIN 2.8 g/dL (3.5-5.0); CREATININE 5.1 mg/dL (0.7-1.2); MAGNESIUM 1.6 mg/dL (1.5-2.7); PHOSPHORUS 4.5 mg/dL (2.7-4.5); POTASSIUM 5.4 mmol/L (3.5-5.1)
[2019-10-25 07:45] LABS: CALCIUM 6.8 mg/dL (8.8-10.2)
[2019-10-25] MEDS ORDERED: VANCOMYCIN 1 GM/NS 1 GM/250 ML IVPB IV ONE (08:00)
[2019-10-25] MEDS: PULMICORT INH SCH ×2 (08:00→20:06)
[2019-10-25] MEDS ORDERED: VANCOMYCIN 1 GM/NS 1 GM/250 ML IVPB IV SCH (08:00)
[2019-10-25] MEDS: HEPARIN SUBQ SCH ×2 (09:14→21:00)
[2019-10-25] MEDS: PERIDEX MT SCH ×2 (09:14→21:01)
[2019-10-25] MEDS: LACTULOSE NG SCH ×2 (09:14→21:01)
[2019-10-25] MEDS: PHOSLO NG SCH ×3 (09:15→16:19)
[2019-10-25] MEDS: ASPIRIN NG SCH (09:15)
[2019-10-25] MEDS: CATAPRES NG SCH ×2 (09:15→21:00)
[2019-10-25] MEDS: SODIUM BICARBONATE 8.4% 150 MEQ in D5W 1,000 ML IV SCH (10:35)
[2019-10-25 14:44] LABS: HEPATITIS PROFILE ACUTE SEE COMMENTS
[2019-10-25 16:21] LABS: ALLEN TEST YES; BE 1.4 mmoll (-3.0-3.0); BLOOD TYPE ARTERIAL; METHB 1.3 % (0.0-1.5); O2HB 95.4 % (95.0-99.0); PCO2(98.6) 32 mmHg (35-45); PO2(98.6) 76 mmHg (60-100); SAMPLE BLOOD; THB 10.4 g/dL (11.5-17.4); pH(98.6) 7.49 (7.35-7.45)
[2019-10-25 16:22] LABS: MODALITY VENTILATOR
[2019-10-25] MEDS: LABETALOL IV PRN (16:49)
[2019-10-25] MEDS ORDERED: COREG PO ONE (17:42)
--- NOTE | 2019-10-25 20:25 | PROVIDER PROGRESS NOTE ---
Progress Note Subjective: he remains intubated and sedated. No family at bedside. Objective: temperature 98.2, pulse 108, respiration 16, blood pressure 104/80, 02 sat 100% on 30% FiO2 mechanical ventilation. General: elderly -Algerian male lying in bed in no acute distress. HEENT: normocephalic, atraumatic. Pupils equal and reactive, Arcus senilis to OU. Mucous membranes dry. Trachea midline. Skin: warm and dry. Neck: supple, 6-8 cm JVD observed. Cardiovascular: distance heart tones noted to the mediastinum. S1S2, regular rate and rhythm. No murmur or gallop noted. Respiratory: lung sounds clear anteriorly. Abdomen: soft, nontender, nondistended. HypoActive bowel sounds noted. : Non inspected, mcelroy in place. Extremities: Right upper extremity pitting edema with Trace edema to hips and left arm. Neurological: sedated Labs: WBC 10.05, hemoglobin 8.5, hematocrit 25.8 sodium 134, potassium 5.4, chloride 97, carbon dioxide 23, BUN 45, creatinine 5.1, calcium 6.8. Intake 3672, output 1565. Impression: Chronic kidney disease stage 5. Patient had an 1140 mL ultrafiltration with sled yesterday. We will attempt SLED again today with a 3k bath and attempt a 4 L ultrafiltration. Hyperkalemia. Stop mirianut. SLED today for helping management. We will use a 3k bath instead of a 4K bath. Blood pressure. In target. Fluid volume. Euvolemic. Anemia. 2 units PRBC transfused yesterday Anion gap acidosis. Sodium bicarbonate drip in place. Nutrition. Defer to primary. Medication review. No changes
--- NOTE | 2019-10-25 20:28 | PROGRESS NOTE ---
DATE: 10/25/2019 SUBJECTIVE: The patient is undergoing a weaning trial. OBJECTIVE: Vital Signs: Temperature 98.8 degrees, blood pressure 165/102, heart rate 102, respirations 18, O2 saturation 98% on the mechanical ventilator. General: This is a chronically ill-appearing male currently on the ventilator. Heart: S1, S2 normal. Tachycardic. Lungs: Equal air entry bilaterally. No wheezing. No rales. Abdomen: Positive bowel sounds. Soft, nontender, nondistended. Extremities: 1+ edema bilaterally. Neurologic: The patient opens his eyes. LABORATORY DATA: White blood cell count 10, hemoglobin 8.5, hematocrit 25 platelets 230,000. Sodium 134, potassium 5.4, chloride 97, CO2 23, BUN 45, creatinine 5.1, glucose 95, calcium 6.8. IMAGING: Chest x-ray: No consolidations, no effusions. ASSESSMENT AND PLAN: 1. Acute hypoxemic respiratory failure. The patient is currently undergoing a weaning trial for possible extubation. Management as per Dr. Marte. 2. Chronic kidney disease stage 5. The patient was started on SLED today. Management as per Dr. Garcia. 3. Metabolic acidosis. Improved. Continue to monitor closely. 4. Bacteremia secondary to Streptococcus mitis. One bottle of the blood cultures grew out this organism. The other remains negative. We will repeat the blood cultures. 5. Elevated troponin. Aware. Continue on the current cardiac medications. 6. Uncontrolled hypertension. The patient will need adjustment of his antihypertensive regimen. We will add Coreg twice a day. 7. Nutrition. The patient is currently on tube feeds. 8. Deep vein thrombosis prophylaxis. Continue on heparin. cc: Rosa Uriarte MD
[2019-10-25] MEDS: LIPITOR NG SCH (21:01)
--- NOTE | 2019-10-25 21:40 | PULMONOLOGY PROGRESS NOTE ---
DATE: 10/25/2019 INTERIM HISTORY: Patient was evaluated earlier this morning. He was on sedation. He was placed on a spontaneous breathing trial, but was on dialysis. Propofol was continued until dialysis was complete. Propofol was discontinued and arterial blood gas was performed. The patient was squeezing hands and following commands. The patient was extubated. He is arousable to alert. He remains weak and has a poor cough effort. OBJECTIVE: Vital Signs: The patient has been afebrile for the last 24 hours. Blood pressure 140/95, heart rate 103, respiratory rate 21, oxygen saturation 96%. HEENT: Pupils are equal and reactive. Oropharynx appears clear. Neck: Supple. Chest: Reveals occasional rhonchi bilaterally. Cardiac: S1-S2. Abdomen: Soft. Extremities: Without edema. LABORATORIES: Chest x-ray is clear. Arterial blood gas following breathing trial, pH 7.49, pCO2 of 32, PO2 of 76. White blood count 10.05, hemoglobin 8.5, platelet count 230,000. IMPRESSION: An 84-year-old with 1. Acute hypoxemic respiratory failure. 2. Acute on chronic kidney disease. Dialysis has been initiated. 3. Metabolic encephalopathy. 4. Hyperkalemia. 5. Anemia with improvement following blood transfusions. PLAN: 1. Extubation today (this has been completed as outlined above). 2. Continue bronchial hygiene. 3. Dialysis per nephrology. TIME SPENT: In critical care management 35 minutes. cc: Ruben Marte MD
[2019-10-26] MEDS: XOPENEX NEB INH SCH ×6 (03:19→22:35)
[2019-10-26] MEDS: ATROVENT NEB INH SCH ×6 (03:19→22:35)
[2019-10-26] MEDS: SODIUM BICARBONATE 8.4% 150 MEQ in D5W 1,000 ML IV SCH ×2 (03:24→17:40)
[2019-10-26 04:39] LABS: ALLEN TEST YES; BE 2.1 mmoll (-3.0-3.0); BLOOD TYPE ARTERIAL; HCO3-(ACT) 26.5 mmoll (20.0-26.0); METHB 1.7 % (0.0-1.5); O2(CT) 15.7 mL/dL (15.0-23.0); O2HB 94.4 % (95.0-99.0); PCO2(98.6) 34 mmHg (35-45); PO2(98.6) 79 mmHg (60-100); SAMPLE BLOOD; SAO2 97.4 % (95.0-100.0); THB 11.8 g/dL (11.5-17.4); pH(98.6) 7.48 (7.35-7.45)
[2019-10-26 04:40] LABS: MODALITY COOL AEROSOL
[2019-10-26] MEDS: PRILOSEC NG SCH (06:13)
[2019-10-26 07:04] LABS: HEMATOCRIT 30.7 % (42.0-52.0); HEMOGLOBIN 10.1 g/dL (14.0-18.0); MCH 27.8 PG (27-31); MCHC 32.9 g/dL (33-37); MCV 84.6 FL (81-99); MPV 10.9 FL (7.4-10.4); RBC 3.63 XMIL (4.7-6.1); RDW 16.2 % (11.5-14.5); WBC 11.99 X1000 (4.8-10.8)
--- NOTE | 2019-10-26 07:17 | Diag Imaging Result Doc PS360 ---
EXAM: CHEST-PORTABLE 10/26/2019 HISTORY: dyspnea TECHNIQUE: AP portable at 0524 COMMENT: There is a double-lumen right internal jugular catheter with its tip in the superior vena cava just above the right atrium. There is an NG tube passing into the stomach. The heart size is within normal limits. There is ill-defined opacity in the right lower lobe which was not present on 10/25/2019. IMPRESSION: Right lower lobe pneumonia. Electronically signed by Stephen Rouse 10/26/2019 7:14 AM
[2019-10-26 07:58] LABS: ALBUMIN 2.9 g/dL (3.5-5.0); CALCIUM 7.6 mg/dL (8.8-10.2); MAGNESIUM 1.4 mg/dL (1.5-2.7); PHOSPHORUS 4.1 mg/dL (2.7-4.5); POTASSIUM 5.6 mmol/L (3.5-5.1)
[2019-10-26] MEDS: PULMICORT INH SCH ×2 (08:15→19:59)
[2019-10-26] MEDS ORDERED: MAGNESIUM SULFATE 1 GM/D5W 1 GM/100 ML IVPB IV ONE (08:27)
[2019-10-26] MEDS: HEPARIN SUBQ SCH ×2 (08:39→22:09)
[2019-10-26] MEDS: PERIDEX MT SCH ×2 (08:39→22:09)
[2019-10-26] MEDS: LACTULOSE NG SCH ×2 (08:39→22:10)
[2019-10-26] MEDS: PHOSLO NG SCH ×3 (08:41→17:40)
[2019-10-26] MEDS: COREG PO SCH ×2 (08:41→22:09)
[2019-10-26] MEDS: ASPIRIN NG SCH (08:41)
[2019-10-26] MEDS: CATAPRES NG SCH ×2 (08:41→22:09)
--- NOTE | 2019-10-26 16:34 | PROVIDER PROGRESS NOTE ---
Progress Note Subjective: He has been extubated and is on an oxygen mask. Drowsy, follows some commands. Able to speak 1 or 2 words. Objective: temperature 99.1, pulse 106, respirations 18, blood pressure 136/83, O2 sat 100% on 10 L oxygen mask. General: elderly -[place] African male lying in bed in no acute distress. HEENT: normocephalic, atraumatic. Pupils equal and reactive, Arcus senilis to OU. Mucous membranes dry. Trachea midline. Skin: warm and dry. Neck: supple, 6cm JVD observed. Cardiovascular: distance heart tones noted. S1S2, regular rate and rhythm. No murmur or gallop noted. Respiratory: lung sounds coarse anteriorly. Abdomen: soft, nontender, nondistended. Active bowel sounds noted. : Non inspected, mcelroy in place. Extremities: Right upper extremity pitting edema with Trace edema to hips and left arm. Neurological: Drowsy, unable to assess orientation. Labs: WBC 11.99, hemoglobin 10.1, hematocrit 30.7, platelet count 234, sodium 138, potassium 5.6, chloride 99, carbon dioxide 23, BUN 22, creatinine 3.0 calcium 7.6, albumin 2.9. Intake 2748, output 4230. Impression: Chronic kidney disease stage 5. Patient had a 4L ultrafiltration with sled yesterday without complications. We will hold off on SLED today and assess tomorrow. Hyperkalemia. Manage with dialysis tomorrow. Blood pressure. In target. Fluid volume. Euvolemic. Anemia. Stable. Acid base balance. Stable. Nutrition. Tube feeding in place. Medication review. Coreg increased.
[2019-10-26] MEDS ORDERED: AZACTAM 1 GM in NS 50 ML IV ONE (17:53)
--- NOTE | 2019-10-26 18:28 | PROGRESS NOTE ---
DATE: 10/26/2019 SUBJECTIVE: The patient is resting comfortably. He was extubated yesterday. He is somewhat lethargic this morning and will answer yes or no, but falls asleep quickly. OBJECTIVE: Vital Signs: Temperature 98.6 degrees, blood pressure 125/91, heart rate 104, respirations 15, O2 saturation is 99% on a Venturi mask. General: This is a chronically ill- appearing elderly male lying in bed, in no acute distress. Heart: S1, S2 normal. Tachycardic. Lungs: Equal air entry bilaterally. No wheezing. No rales. Abdomen: Positive bowel sounds. Soft, nontender, nondistended. Extremities: Trace pedal edema. Neurologic: The patient is lethargic. He is able to move all 4 extremities. LABS: White blood cell count 11, hemoglobin 10, hematocrit 30, platelets 234,000. ABG, pH 7.48, pCO2 34, PO2 79, bicarb 26. Sodium 138, potassium 5.6, chloride 99, CO2 23, BUN 22, creatinine 3, glucose 80, magnesium 1.4. Chest x-ray shows a right lower lobe pneumonia. ASSESSMENT AND PLAN: 1. Acute hypoxemic respiratory failure status post extubation. 2. Possible right lower lobe pneumonia. The patient is receiving vancomycin. We will add Azactam and order a sputum culture. We will also check a procalcitonin level. 3. Chronic kidney disease stage 5D. Management as per the casing finisher and stuffer. 4. Bacteremia secondary to Streptococcus mitis. We will await the results of the repeat blood cultures. The patient remains on antibiotic therapy. 5. Hypertension. Improved. Continue on the current antihypertensive regimen. 6. Elevated troponin. Aware. 7. Nutrition. The patient's tube feeds were stopped yesterday prior to extubation. The patient was too sleepy today to undergo a swallow evaluation. The patient may need IDPN or to resume tube feeds. 8. Anemia. Stable. 9. Hyperkalemia. Unchanged. This will be addressed during the patient's next dialysis session. 10. Hypomagnesemia. We will replace the patient's magnesium. 11. Constipation. We will start the patient on Dulcolax. He has an NG tube. Will also add Colace. 12. Deep vein thrombosis prophylaxis. Continue on heparin. cc: MD BUZZ Baugh
[2019-10-26] MEDS: LIPITOR NG SCH (22:09)
[2019-10-26] MEDS: DULCOLAX PR SCH (22:10)
--- NOTE | 2019-10-26 22:22 | PULMONOLOGY PROGRESS NOTE ---
DATE: 10/26/2019 SUBJECTIVE: The patient is awake and alert. He has a weak cough effort. He has no increased work of breathing. OBJECTIVE: Vital Signs: Maximum temperature in the last 24 hours is 100.3 degrees, blood pressure 152/91, heart rate 104, respiratory rate 15, oxygen saturation 100%. HEENT: Pupils are equal and reactive. Oropharynx appears clear. Neck: Is supple. Chest: Reveals shallow breath sounds bilaterally. Cardiac exam: S1-S2. Abdomen: Is soft. Extremities: Without edema. LABORATORIES: Chest x-ray reveals faint infiltrate at the right base. Sputum culture reveals no new data. White blood count 11.99, hemoglobin 10.1, platelet count 234,000 arterial blood gas, pH 7.48, pCO2 of 34, PO2 of 79. IMPRESSION: An 84-year-old with 1. Acute hypoxemic respiratory failure. 2. Atelectasis. 3. Metabolic encephalopathy. 4. End-stage renal disease status post initiation of hemodialysis. PLAN: 1. Continue bronchial hygiene. 2. We will cycle BiPAP as needed. 3. Continue antibiotics. 4. Dialysis per Nephrology. cc: Ruben Marte MD
[2019-10-27] MEDS: ATROVENT NEB INH SCH ×6 (03:14→23:29)
[2019-10-27] MEDS: XOPENEX NEB INH SCH ×6 (03:14→23:29)
[2019-10-27] MEDS ORDERED: NS 2,000 ML MISC PRN (06:21)
[2019-10-27 06:48] LABS: HEMATOCRIT 26.3 % (42.0-52.0); HEMOGLOBIN 8.2 g/dL (14.0-18.0); MCH 26.9 PG (27-31); MCHC 31.2 g/dL (33-37); MCV 86.2 FL (81-99); MPV 11.3 FL (7.4-10.4); RBC 3.05 XMIL (4.7-6.1); RDW 15.6 % (11.5-14.5); WBC 9.1 X1000 (4.8-10.8)
[2019-10-27] MEDS: PRILOSEC NG SCH (07:15)
--- NOTE | 2019-10-27 07:18 | Diag Imaging Result Doc PS360 ---
EXAM: CHEST-PORTABLE 10/27/2019 HISTORY: dyspnea TECHNIQUE: AP portable at 0531 COMMENT: There are patchy opacities in both lung bases particularly the right lower lobe. This is slightly worse than on 10/26/2019. IMPRESSION: Worsened atelectasis versus pneumonia. Electronically signed by Stephen Rouse 10/27/2019 7:16 AM
[2019-10-27 07:30] LABS: ALBUMIN 1.7 g/dL (3.5-5.0); CREATININE 3.4 mg/dL (0.7-1.2); MAGNESIUM 1.2 mg/dL (1.5-2.7); PHOSPHORUS 4.1 mg/dL (2.7-4.5); POTASSIUM 4.1 mmol/L (3.5-5.1)
[2019-10-27] MEDS: PULMICORT INH SCH ×2 (07:40→20:01)
[2019-10-27 07:48] LABS: CALCIUM 5.3 mg/dL (8.8-10.2)
[2019-10-27] MEDS ORDERED: MAGNESIUM SULFATE 2 GM/S.W.I. 2 GM/50 ML IVPB IV ONE (08:18)
[2019-10-27] MEDS: LACTULOSE NG SCH ×2 (08:28→22:03)
[2019-10-27] MEDS: PERIDEX MT SCH ×2 (08:28→22:03)
[2019-10-27] MEDS: CATAPRES NG SCH ×2 (08:29→22:02)
[2019-10-27] MEDS: COREG PO SCH ×2 (08:29→22:02)
[2019-10-27] MEDS: ASPIRIN NG SCH (08:29)
[2019-10-27] MEDS: PHOSLO NG SCH ×3 (08:29→15:59)
[2019-10-27] MEDS: SODIUM CHLORIDE 0.9% INJ SCH (08:43)
[2019-10-27] MEDS: PROTONIX IV SCH (08:43)
[2019-10-27] MEDS: HEPARIN SUBQ SCH ×3 (09:00→22:02)
[2019-10-27 09:20] LABS: ALLEN TEST YES; BE 0.6 mmoll (-3.0-3.0); BLOOD TYPE ARTERIAL; HCO3-(ACT) 25.3 mmoll (20.0-26.0); METHB 0.5 % (0.0-1.5); MODALITY BI PAP; O2(CT) 14.7 mL/dL (15.0-23.0); O2HB 94.3 % (95.0-99.0); PCO2(98.6) 35 mmHg (35-45); PO2(98.6) 63 mmHg (60-100); SAMPLE BLOOD; SAO2 97.2 % (95.0-100.0); THB 11.1 g/dL (11.5-17.4); pH(98.6) 7.45 (7.35-7.45)
[2019-10-27] MEDS: SODIUM BICARBONATE 8.4% 150 MEQ in D5W 1,000 ML IV SCH (09:34)
[2019-10-27] MEDS ORDERED: CALCIUM GLUCONATE 1 GM in NS 50 ML IV ONE (10:00)
--- NOTE | 2019-10-27 11:46 | Diag Imaging Result Doc PS360 ---
EXAM: CHEST-PORTABLE 10/27/2019 HISTORY: SOB TECHNIQUE: Erect AP portable at 1114 COMMENT: There is a double-lumen catheter in the right internal jugular with its tip in the superior vena cava and an NG tube which passes below the diaphragm. There is hazy opacity over the right lower lobe which is worse than on 10/27/2019 at 0531. IMPRESSION: Worsening opacification the right lower lobe. Electronically signed by Stephen Rouse 10/27/2019 11:44 AM
--- NOTE | 2019-10-27 14:01 | PROVIDER PROGRESS NOTE ---
Progress Note Subjective: He voices being hungry. He is more alert today. Denies any other complaints. Objective: temperature 98.2, pulse 94, respirations 17, blood pressure 124/87, 02 sat 100% on 02 mask General: elderly -Danish male lying in bed in no acute distress. HEENT: normocephalic, atraumatic. Pupils equal and reactive, Arcus senilis to OU. Mucous membranes dry. Trachea midline. Skin: warm and dry. Neck: supple, no JVD observed. Cardiovascular: distance heart tones noted. S1S2, regular rate and rhythm. No murmur or gallop noted. Respiratory: lung sounds coarse anteriorly. Abdomen: soft, nontender, nondistended. Active bowel sounds noted. : Non inspected, mcelroy in place. Extremities: Right upper extremity pitting edema with Trace edema to BLE. Neurological: Alert, oriented to person and place. Labs: WBC 9.1, hemoglobin 8.2, hematocrit 26.3, sodium 139, potassium 4.1, chloride 104, carbon dioxide 23, BUN 31, creatinine 3.4, calcium 5.3, albumin 1.7. Intake 2260, output 150. Impression: Chronic kidney disease stage 5. His BUN and creatinine have elevated slightly over the last 24 hours. He did not receive slow low efficiency dialysis yesterday. He will have this today with a 4K bath and 2 to 4 L ultrafiltration attempt over eight hours. Hyperkalemia. Resolved. Hypocalcemia. Corrected calcium 7.6. IV calcium replacement ordered by primary. Hypomagnesemia. IV replacement ordered by primary. Blood pressure. In target. Fluid volume. Euvolemic. Anemia. Stable. Acid base balance. Stable. Nutrition. He has a swallow evaluation ordered today. Medication review. Azactam added.
--- NOTE | 2019-10-27 15:34 | PROGRESS NOTE ---
DATE: 10/27/2019 SUBJECTIVE: The patient is resting comfortably in bed. He is more awake and alert this morning. No acute events noted overnight. OBJECTIVE: Vital Signs: Temperature 98.6 degrees, blood pressure 124/82, heart rate 102, respirations 17, O2 saturation 97% on a 40% Ventimask. General: This is a chronically ill- appearing, elderly male lying in bed, in no acute distress. HEENT: Normocephalic, atraumatic. Oral mucosa is moist. Heart: S1, S2 normal. Tachycardic. Lungs: Equal air entry bilaterally. No wheezing. No rales. Abdomen: Positive bowel sounds. Soft, nontender, nondistended. Extremities: Trace pedal edema. Neurologic: The patient is awake and alert. He is able to move all 4 extremities. LABS: White blood cell count 9.1, hemoglobin 8.2, hematocrit 26, platelets 202,000. Sodium 139, potassium 4.1, chloride 104, CO2 23, BUN 31, creatinine 3.4, glucose 127, calcium 5.3, magnesium 1.2, phosphorus 4.1, albumin 1.7. Chest x-ray: Right lower lobe pneumonia. ASSESSMENT AND PLAN: 1. Acute hypoxemic respiratory failure, status post extubation. The patient appears to have pneumonia on the chest x-ray. We will adjust the antibiotic therapy. 2. Right lower lobe pneumonia. Merrem has been added to the patient's antibiotic regimen. Will also continue with vancomycin. Sputum culture has been ordered. Continue with bronchodilator therapy. We will also add incentive spirometry. 3. Chronic kidney disease stage 5D. Management as per the electrical electronics engineer. 4. Bacteremia secondary to Streptococcus mitis. So far the repeat blood cultures remain negative. The patient is receiving antibiotic therapy. 5. Hypertension. Improved. 6. Elevated troponin. Aware. 7. Severe protein calorie malnutrition. The patient has been started on a pureed diet. We will monitor his intake closely. 8. Hypomagnesemia. We will replace the patient's magnesium. 9. Hypocalcemia. Will replace the patient's calcium. 10. Constipation. Continue with laxative therapy. We will order an abdominal x-ray. 11. Deep vein thrombosis prophylaxis. Continue on heparin. cc: Rosa Urirate MD
--- NOTE | 2019-10-27 15:37 | Diag Imaging Result Doc PS360 ---
EXAM: ABDOMEN FLAT/UPRIGHT INDICATION: constipation TECHNIQUE: 2 views COMPARISON: 11/24/2015 FINDINGS: There is an NG tube in place with the tip projecting below the diaphragm in the expected position. There is abundant stool in the colon suggesting likely constipation. There is moderate gaseous distention of the colon. There is no obstructive bowel pattern. There is no evidence of large volume free abdominal gas. There is stable metallic shrapnel projecting of the pelvis on the left. There is no evidence of organomegaly. IMPRESSION: Suggestion of constipation as well as moderate gaseous distention of the colon. Electronically signed by Evans Subramanian 10/27/2019 3:35 PM
[2019-10-27] MEDS ORDERED: VANCOMYCIN 1 GM/NS 1 GM/250 ML IVPB IV ONE (17:00)
[2019-10-27] MEDS ORDERED: MERREM 1 GM in NS 50 ML IV SCH (17:00)
[2019-10-27] MEDS ORDERED: MERREM 1 GM in NS 50 ML IV ONE (17:00)
[2019-10-27] MEDS: LIPITOR NG SCH (22:02)
[2019-10-27] MEDS: DULCOLAX PR SCH (22:03)
[2019-10-27] MEDS: SENOKOT PO SCH (22:03)
[2019-10-28] MEDS: SODIUM BICARBONATE 8.4% 150 MEQ in D5W 1,000 ML IV SCH (00:56)
--- NOTE | 2019-10-28 02:03 | PULMONOLOGY PROGRESS NOTE ---
DATE: 10/27/2019 SUBJECTIVE: The patient is awake and alert. He has a marginal cough effort. OBJECTIVE: Vital Signs: The patient has been afebrile for the last 24 hours. Blood pressure 127/73, heart rate 103, respiratory rate 17, oxygen saturation 96% on face mask. HEENT: Pupils are equal and reactive. Oropharynx is clear. Neck: Supple. Chest: Reveals decreased breath sounds right base. Cardiac: S1-S2. Abdomen: Slightly firm right lower quadrant. Extremities: Without edema. LABORATORIES: Chest x-ray reveals slight increased infiltrate at the right base. White blood count 9.10, hemoglobin 8.2, platelet count 202,000. Arterial blood gas reveals pH 7.45, pCO2 of 35, PO2 of 63. Microbiology reveals no new data. IMPRESSION: An 84-year-old with: 1. Acute hypoxemic respiratory failure. 2. Right lower lobe pneumonia with atelectasis. 3. Metabolic encephalopathy. 4. End-stage renal disease status post initiation of hemodialysis. PLAN: 1. Continue antibiotics. 2. Continue bronchial hygiene. 3. Cycle BiPAP at bedtime and p.r.n. 4. Continue dialysis. cc: Ruben Marte MD
[2019-10-28] MEDS: ATROVENT NEB INH SCH ×7 (03:40→23:31)
[2019-10-28] MEDS: XOPENEX NEB INH SCH ×7 (03:40→23:31)
--- NOTE | 2019-10-28 05:44 | Diag Imaging Result Doc PS360 ---
EXAM: CHEST-1 VIEW HISTORY: pneumonia TECHNIQUE: Single view COMPARISON: 10/27/2019 FINDINGS: The lungs are well expanded. No cardiomegaly. No change in the right jugular catheter. There are infiltrates most prominent in the right lung base. These are less pronounced than on the prior study. No pleural effusions identified. IMPRESSION: Mild interval improvement Electronically signed by Darryl Da Silva 10/28/2019 5:42 AM
[2019-10-28 06:20] LABS: HEMATOCRIT 29.1 % (42.0-52.0); HEMOGLOBIN 9.1 g/dL (14.0-18.0); MCHC 31.3 g/dL (33-37); MCV 86.4 FL (81-99); MPV 11.3 FL (7.4-10.4); RBC 3.37 XMIL (4.7-6.1); RDW 15.1 % (11.5-14.5); WBC 8.25 X1000 (4.8-10.8)
[2019-10-28 07:05] LABS: CALCIUM 7.6 mg/dL (8.8-10.2); CREATININE 3.4 mg/dL (0.7-1.2); POTASSIUM 5.5 mmol/L (3.5-5.1)
[2019-10-28] MEDS: PULMICORT INH SCH ×2 (07:54→19:00)
[2019-10-28] MEDS: SENOKOT PO SCH ×2 (09:00→22:21)
[2019-10-28] MEDS: PHOSLO NG SCH ×4 (09:00→17:01)
[2019-10-28] MEDS: SODIUM CHLORIDE 0.9% INJ SCH (09:14)
[2019-10-28] MEDS: PROTONIX IV SCH (09:14)
[2019-10-28] MEDS: ASPIRIN NG SCH (09:15)
[2019-10-28] MEDS: LACTULOSE NG SCH ×2 (09:15→22:20)
[2019-10-28] MEDS: CATAPRES NG SCH ×2 (09:15→22:20)
[2019-10-28] MEDS: HEPARIN SUBQ SCH ×2 (09:15→22:20)
[2019-10-28] MEDS: PERIDEX MT SCH ×2 (09:15→22:20)
[2019-10-28] MEDS: COREG PO SCH ×2 (09:16→22:21)
[2019-10-28] MEDS ORDERED: NS 2,000 ML MISC PRN (09:48)
[2019-10-28] MEDS ORDERED: HEPARIN IV PRN (09:48)
[2019-10-28] MEDS ORDERED: VANCOMYCIN 1 GM/NS 1 GM/250 ML IVPB IV SCH (16:15)
[2019-10-28] MEDS ORDERED: VANCOMYCIN 1 GM/NS 1 GM/250 ML IVPB IV ONE (17:00)
--- NOTE | 2019-10-28 18:20 | PROGRESS NOTE ---
DATE: 10/28/2019 SUBJECTIVE: The patient is resting comfortably in bed. He is sitting up eating. He states that he feels much better. OBJECTIVE: Vital Signs: Temperature 98 degrees, blood pressure 102/64, heart rate 91, respirations 14, O2 saturation 96% on 2 L nasal cannula. General: This is a chronically ill- appearing elderly male sitting up in bed in no acute distress. Heart: S1, S2 normal. Regular rate and rhythm. Lungs: Equal air entry. Diminished breath sounds in the bases. Abdomen: Positive bowel sounds. Soft, nontender, nondistended. Extremities: No edema, no cyanosis. Neurologic: The patient is alert and oriented x3. LABORATORY DATA: White blood cell count 8.2, hemoglobin 9.1, hematocrit 29, platelets 208,000. Sodium 138, potassium 5.5, chloride 99, CO2 27, BUN 31, creatinine 3.4, glucose 119, calcium 7.6, magnesium 2.1. IMAGING: Chest x-ray shows interval improvement. ASSESSMENT AND PLAN: 1. Acute hypoxemic respiratory failure status post extubation. The pneumonia appears to be improving. 2. Right lower lobe pneumonia. Continue on the current antibiotic regimen. Continue with bronchodilator therapy and incentive spirometry. 3. Chronic kidney disease stage 5D. The patient is due for dialysis today. 4. Hypertension. Stable. 5. Severe protein calorie malnutrition. The patient has been switched to a mechanical soft diet with Nepro shakes. 6. Bacteremia secondary to Streptococcus mitis. The repeat blood cultures remain negative. 7. Hyperkalemia. This will be addressed during dialysis. 8. Elevated troponin. This is likely secondary to the patient's underlying renal disease. 9. Constipation. We will add MiraLAX and Colace. 10. Anemia. Stable. 11. Deep vein thrombosis prophylaxis. Continue on heparin. cc: Rosa Uriarte MD MTDD
--- NOTE | 2019-10-28 18:44 | Carotid Study ---
DATE: 10/23/2019 LINUX CONSULTANT: Prachi. REQUESTING PHYSICIAN: Brad. INDICATIONS: CVA. FINDINGS: The bilateral carotid artery systems were visualized along their course. There were bilateral atherosclerotic broad-based plaque changes noted in the carotid bulbs. Velocities were normal and correlated to a 0% to 39% stenosis. Vertebrals were antegrade bilaterally. IMPRESSION: Mild degree of atherosclerotic changes noted in the bilateral carotid artery systems with antegrade vertebrals. cc: MD Ena Dee CRNP
--- NOTE | 2019-10-28 20:06 | NEPHROLOGY PROGRESS NOTE ---
DATE: 10/28/2019 SUBJECTIVE: He is much better today. Awake, alert, eating his breakfast. He recognizes me. Denies chest pain, shortness of breath, etc. OBJECTIVE: Vital Signs: Blood pressure 102/64, heart rate 91, respirations 14, afebrile. General: Elderly man, no acute distress. Skin: Warm and dry. Neck: Neck veins are not distended. External jugular veins are distended. Heart: Regular. No rubs. Lungs: Equal. No crackles or wheezes. Abdomen: Flat, soft, nontender. Bowel sounds are present. Extremities: With no edema, clubbing, or cyanosis. IMPRESSION: Chronic kidney disease stage 5D. He will have routine dialysis treatment today. I will stop his IV fluids. I dosed his vancomycin. Electrolytes are acceptable. 2K bath today. cc: Chavez Garcia MD
[2019-10-28] MEDS: MIRALAX PO SCH (22:20)
[2019-10-28] MEDS: COLACE PO SCH (22:21)
[2019-10-28] MEDS: LIPITOR NG SCH (22:21)
[2019-10-28] MEDS: DULCOLAX PR SCH (22:21)
--- NOTE | 2019-10-28 23:44 | PROVIDER PROGRESS NOTE ---
Progress Note Dr. Garvin Progress Note/Pulmonary and or critical care Subjective: The patient is on dialysis. He is on NC 2L at this time. He apparently already tolerated room air well in ICU. He has no complaint at this time. No family at the bedside. Input was appreciated from Dr. Lugo and other teams on the case. Objective: Vital Signs: 98.0 (No fever in last 24 hours), MT 91, RR 14, BP 102/64 and SaO2 96% on room air. I/O: -1108 ml. Physical Examination: General: on dialysis. No acute distress noted. HEENT: Normocephalic. Trachea midline. Mucosa pink and moist. Chest: Even and unlabored. Symmetrical excursion. Auscultation reveals diminished breathing sounds bilaterally. CVS: S1 and S2 appreciated. Abdomen: Soft. Non-distended. Non-tender. Normoactive bowel sounds noted. Extremities: BLE trace edema. No cyanosis. No clubbing. Neuro: Awake and alert. Labs and Radiology: Laboratory Results 10/28/19 10/28/19 10/28/19 00:58 05:32 05:45 WBC RBC Hgb Hct MCV MCH MCHC RDW Std Deviation Plt Count MPV Sodium 138 Potassium 5.5 H D Chloride 99 Carbon Dioxide 27 Anion Gap 12 BUN 31 H Creatinine 3.4 H Estimated GFR/1.73 m2 21 BUN/Creatinine Ratio 9 Glucose 119 H POC Glucose 142 H 124 H Calculated Osmolality 283 Calcium 7.6 L D Magnesium 10/28/19 10/28/19 10/28/19 05:45 05:45 08:24 WBC 8.25 RBC 3.37 L Hgb 9.1 L Hct 29.1 L MCV 86.4 MCH 27.0 MCHC 31.3 L RDW Std Deviation 15.1 H Plt Count 208 MPV 11.3 H Sodium Potassium Chloride Carbon Dioxide Anion Gap BUN Creatinine Estimated GFR/1.73 m2 BUN/Creatinine Ratio Glucose POC Glucose 120 H Calculated Osmolality Calcium Magnesium 2.1 10/28/19 10/28/19 17:52 19:56 WBC RBC Hgb Hct MCV MCH MCHC RDW Std Deviation Plt Count MPV Sodium Potassium Chloride Carbon Dioxide Anion Gap BUN Creatinine Estimated GFR/1.73 m2 BUN/Creatinine Ratio Glucose POC Glucose 164 H 141 H Calculated Osmolality Calcium Magnesium Assessment: Acute hypoxemic respiratory failure. Resolved. RLL pneumonia vs. atelectasis. Metabolic encephalopathy. ESRD s/p initiation of hemodialysis. Plan: Continue antibiotics including Meropenem and Vancomycin. Continue bronchodilators. BiPAP at bedtime and as needed. Continue dialysis per Dr. Garcia. Continue GI and DVT prophylaxis. Ok to transfer to the medical floor. Evaluation time in minutes: 31 minutes
[2019-10-29] MEDS: XOPENEX NEB INH SCH ×6 (03:28→23:02)
[2019-10-29] MEDS: ATROVENT NEB INH SCH ×6 (03:28→23:02)
[2019-10-29 05:52] LABS: HEMATOCRIT 26.7 % (42.0-52.0); HEMOGLOBIN 8.6 g/dL (14.0-18.0); MCH 28.1 PG (27-31); MCHC 32.2 g/dL (33-37); MCV 87.3 FL (81-99); MPV 11.8 FL (7.4-10.4); RBC 3.06 XMIL (4.7-6.1); RDW 14.8 % (11.5-14.5); WBC 8.13 X1000 (4.8-10.8)
[2019-10-29 06:23] LABS: CALCIUM 7.7 mg/dL (8.8-10.2); CREATININE 3.4 mg/dL (0.7-1.2); POTASSIUM 4.5 mmol/L (3.5-5.1)
[2019-10-29] MEDS: PULMICORT INH SCH ×2 (07:35→19:09)
[2019-10-29] MEDS: PROTONIX IV SCH (08:04)
[2019-10-29] MEDS: HEPARIN SUBQ SCH ×2 (08:04→20:39)
[2019-10-29] MEDS: PERIDEX MT SCH ×2 (08:04→20:39)
[2019-10-29] MEDS: CATAPRES NG SCH ×2 (08:04→20:40)
[2019-10-29] MEDS: LACTULOSE NG SCH ×2 (08:04→20:39)
[2019-10-29] MEDS: ASPIRIN NG SCH (08:04)
[2019-10-29] MEDS: MIRALAX PO SCH ×2 (08:04→20:40)
[2019-10-29] MEDS: COLACE PO SCH ×2 (08:04→20:40)
[2019-10-29] MEDS: PHOSLO NG SCH ×3 (08:05→17:15)
[2019-10-29] MEDS: SENOKOT PO SCH ×2 (08:05→20:40)
[2019-10-29] MEDS: COREG PO SCH ×2 (08:05→20:40)
--- NOTE | 2019-10-29 15:36 | PROGRESS NOTE ---
DATE: 10/29/2019 SUBJECTIVE: The patient is sitting up in bed eating breakfast. He has no complaints. No acute events noted overnight. OBJECTIVE: Vital Signs: Temperature 98 degrees, blood pressure 129/73, heart rate 92, respirations 18, O2 saturation 95% on 2 L nasal cannula. General: This is a chronically ill- appearing elderly male sitting in bed in no acute distress. Heart: S1, S2 normal. Regular rate and rhythm. Lungs: Equal air entry bilaterally. No wheezing. No rales. Abdomen: Positive bowel sounds. Soft, nontender, nondistended. Extremities: No edema no cyanosis. Neurologic: The patient is alert and oriented x3. LABS: Hemoglobin 8.6, hematocrit 26 platelets 205,000, white blood cell count 8.1. Sodium 135, potassium 4.5, chloride 97, CO2 26, BUN 35, creatinine 3.4, glucose 112. ASSESSMENT AND PLAN: 1. Acute hypoxemic respiratory failure status post extubation. Try to wean off supplemental oxygen. 2. Right lower lobe pneumonia. The procalcitonin was 126. Continue with the current antibiotic regimen plus incentive spirometry. 3. Chronic kidney disease stage 5 d. Management as per the education sales consultant. 4. Hypertension. Stable. 5. Severe protein calorie malnutrition. Continue with meal supplements. 6. Constipation. The patient still has not had a bowel movement. We will increase the dosage of the lactulose. Continue on MiraLAX and Dulcolax. 7. Anemia. Stable. 8. Bacteremia secondary to Streptococcus mitis. The patient is on antibiotic therapy. 9. Deep vein thrombosis prophylaxis. Continue on heparin. 10. Physical therapy has been consulted. cc: MD BUZZ Baugh
--- NOTE | 2019-10-29 17:58 | PROVIDER PROGRESS NOTE ---
Progress Note Dr. Garvin Progress Note/Pulmonary and or critical care Subjective: The patient is sitting in bed having breakfast. He is on room air at this time. He states he is feeling well. He denies cough or SOB. Objective: Vital Signs: 98.2 (No fever in last 24 hours), AL 90, RR 16, BP 134/78 and SaO2 97% on room air. Physical Examination: General: Sitting in bed having breakfast. No acute distress noted. HEENT: Normocephalic. Trachea midline. Mucosa pink and moist. PERRL. Chest: Even and unlabored. Symmetrical excursion. Auscultation reveals diminished breathing sounds bilaterally. CVS: S1 and S2 appreciated. Abdomen: Soft. Non-distended. Non-tender. Normoactive bowel sounds noted. Extremities: BLE trace edema. No cyanosis. No clubbing. Neuro: Awake and alert. Labs and Radiology: Laboratory Results 10/27/19 10/28/19 10/28/19 05:45 17:52 19:56 WBC RBC Hgb Hct MCV MCH MCHC RDW Std Deviation Plt Count MPV Sodium Potassium Chloride Carbon Dioxide Anion Gap BUN Creatinine Estimated GFR/1.73 m2 BUN/Creatinine Ratio Glucose POC Glucose 164 H 141 H Calculated Osmolality Calcium Magnesium Procalcitonin SEE COMMENTS 10/29/19 10/29/19 10/29/19 05:06 05:07 05:07 WBC 8.13 RBC 3.06 L Hgb 8.6 L Hct 26.7 L MCV 87.3 MCH 28.1 MCHC 32.2 L RDW Std Deviation 14.8 H Plt Count 205 MPV 11.8 H Sodium 135 L Potassium 4.5 D Chloride 97 L Carbon Dioxide 26 Anion Gap 12 BUN 35 H Creatinine 3.4 H Estimated GFR/1.73 m2 21 BUN/Creatinine Ratio 10 Glucose 112 H POC Glucose 134 H Calculated Osmolality 279 Calcium 7.7 L Magnesium Procalcitonin 10/29/19 10/29/19 10/29/19 05:07 09:22 11:24 WBC RBC Hgb Hct MCV MCH MCHC RDW Std Deviation Plt Count MPV Sodium Potassium Chloride Carbon Dioxide Anion Gap BUN Creatinine Estimated GFR/1.73 m2 BUN/Creatinine Ratio Glucose POC Glucose 136 H 121 H Calculated Osmolality Calcium Magnesium 2.1 Procalcitonin 10/29/19 16:49 WBC RBC Hgb Hct MCV MCH MCHC RDW Std Deviation Plt Count MPV Sodium Potassium Chloride Carbon Dioxide Anion Gap BUN Creatinine Estimated GFR/1.73 m2 BUN/Creatinine Ratio Glucose POC Glucose 149 H Calculated Osmolality Calcium Magnesium Procalcitonin Assessment: Acute hypoxemic respiratory failure. Resolved. RLL pneumonia vs. atelectasis. Metabolic encephalopathy. ESRD s/p initiation of hemodialysis. Plan: Continue antibiotics including Meropenem and Vancomycin. Continue bronchodilators. Continue dialysis per Dr. Garcia. Continue GI and DVT prophylaxis. Encourage patient to use incentive spirometer routinely with deep breathing and cough.
[2019-10-29] MEDS: DULCOLAX PR SCH (20:40)
[2019-10-29] MEDS: LIPITOR NG SCH (20:40)
[2019-10-30] MEDS: ATROVENT NEB INH SCH ×6 (03:12→23:08)
[2019-10-30] MEDS: XOPENEX NEB INH SCH ×6 (03:12→23:08)
[2019-10-30 05:48] LABS: HEMATOCRIT 25.4 % (42.0-52.0); HEMOGLOBIN 7.9 g/dL (14.0-18.0); MCH 26.8 PG (27-31); MCHC 31.1 g/dL (33-37); MCV 86.1 FL (81-99); MPV 11.4 FL (7.4-10.4); RBC 2.95 XMIL (4.7-6.1); RDW 14.4 % (11.5-14.5); WBC 8.09 X1000 (4.8-10.8)
[2019-10-30 05:49] LABS: CALCIUM 7.4 mg/dL (8.8-10.2); CREATININE 5.1 mg/dL (0.7-1.2); POTASSIUM 4.8 mmol/L (3.5-5.1)
[2019-10-30] MEDS: PULMICORT INH SCH ×2 (07:37→19:25)
[2019-10-30] MEDS: PROTONIX IV SCH (08:09)
[2019-10-30] MEDS: PERIDEX MT SCH ×2 (08:09→21:00)
[2019-10-30] MEDS: LACTULOSE NG SCH ×2 (08:09→21:00)
[2019-10-30] MEDS: HEPARIN SUBQ SCH ×2 (08:09→21:01)
[2019-10-30] MEDS: COLACE PO SCH ×2 (08:09→21:01)
[2019-10-30] MEDS: COREG PO SCH ×2 (08:09→21:01)
[2019-10-30] MEDS: ASPIRIN NG SCH (08:09)
[2019-10-30] MEDS: SENOKOT PO SCH ×2 (08:10→21:01)
[2019-10-30] MEDS: PHOSLO NG SCH ×3 (08:10→16:25)
[2019-10-30] MEDS: MIRALAX PO SCH ×2 (08:10→21:00)
[2019-10-30] MEDS: CATAPRES NG SCH ×2 (08:10→21:00)
[2019-10-30] MEDS: LABETALOL IV PRN (12:01)
--- NOTE | 2019-10-30 19:26 | PROVIDER PROGRESS NOTE ---
Progress Note Dr. Garvin Progress Note/Pulmonary and or critical care Subjective: The patient is sitting in bed and just finished his breakfast. He is complaining of constipation. He does show signs of SOB as talking and drinking, but he states he is fine. Objective: Vital Signs: 98.7 (No fever in last 24 hours), VT 106, RR 19, BP 146/78 and SaO2 95% on NC 2L. Physical Examination: General: Sitting in bed having breakfast. No acute distress noted. HEENT: Normocephalic. Trachea midline. Mucosa pink and moist. PERRL. Chest: Even and unlabored. Symmetrical excursion. Clear to auscultation with diminished breathing sounds bilaterally. CVS: S1 and S2 appreciated. Abdomen: Soft. Non-distended. Non-tender. Normoactive bowel sounds noted. Extremities: No edema. No cyanosis. No clubbing. Neuro: Awake and alert. Labs and Radiology: Laboratory Results 10/29/19 10/30/19 10/30/19 19:45 03:18 04:47 WBC RBC Hgb Hct MCV MCH MCHC RDW Std Deviation Plt Count MPV Sodium Potassium Chloride Carbon Dioxide Anion Gap BUN Creatinine Estimated GFR/1.73 m2 BUN/Creatinine Ratio Glucose POC Glucose 167 H 137 H 92 Calculated Osmolality Calcium 10/30/19 10/30/19 10/30/19 04:48 04:48 08:36 WBC 8.09 RBC 2.95 L Hgb 7.9 L Hct 25.4 L MCV 86.1 MCH 26.8 L MCHC 31.1 L RDW Std Deviation 14.4 Plt Count 222 MPV 11.4 H Sodium 135 L Potassium 4.8 Chloride 95 L Carbon Dioxide 24 L Anion Gap 16 BUN 55 H D Creatinine 5.1 H Estimated GFR/1.73 m2 13 BUN/Creatinine Ratio 11 Glucose 105 H POC Glucose 110 H Calculated Osmolality 286 Calcium 7.4 L 10/30/19 16:17 WBC RBC Hgb Hct MCV MCH MCHC RDW Std Deviation Plt Count MPV Sodium Potassium Chloride Carbon Dioxide Anion Gap BUN Creatinine Estimated GFR/1.73 m2 BUN/Creatinine Ratio Glucose POC Glucose 128 H Calculated Osmolality Calcium Assessment: Acute hypoxemic respiratory failure. Resolved. RLL pneumonia vs. atelectasis. Metabolic encephalopathy. ESRD s/p initiation of hemodialysis. Plan: Continue antibiotics including Meropenem and Vancomycin. Continue bronchodilators. He has been on bowel regimen including Colace, Lactulose and Miralax. Continue bowel regimen per Dr. Lugo. Continue routine dialysis per Dr. Garcia. Continue GI and DVT prophylaxis. Encourage patient to use incentive spirometer routinely with deep breathing and coughing.
--- NOTE | 2019-10-30 19:38 | PROGRESS NOTE ---
DATE: 10/30/2019 SUBJECTIVE: The patient is a sitting up eating breakfast. He states that he does not feel so good today. He is complaining of abdominal pain. OBJECTIVE: Vital Signs: Temperature 98.6 degrees, blood pressure 146/79, heart rate 76, respirations 19, O2 saturations 100% on 2 L nasal cannula. General: This is a chronically ill- appearing elderly male lying in bed in no acute distress. Heart: S1, S2 normal. Regular rate and rhythm. Lungs: Equal air entry bilaterally. Mild rhonchi. Abdomen: Positive bowel sounds. Soft, nontender, nondistended. Extremities: No edema, no cyanosis. Neuro: The patient is alert and oriented x3. LABS: White blood cell count 8, hemoglobin 7.9, hematocrit 25, platelets 222,000. Sodium 135, potassium 4.8, chloride 95, CO2 24, BUN 55, creatinine 5.1, glucose 105. ASSESSMENT AND PLAN: 1. Acute hypoxemic respiratory failure status post extubation. 2. Right lower lobe pneumonia. Continue with antibiotics, bronchodilator therapy and supplemental oxygen. Will repeat the chest x-ray tomorrow. 3. Chronic kidney disease stage 5D. Management as per the jumpbasting facing baster. 4. Severe protein calorie malnutrition. Continue on meal supplements. 5. Anemia. Stable. 6. Bacteremia secondary to Streptococcus mitis. This likely represents a contaminant. Subsequent blood cultures have remained negative. 7. Deep vein thrombosis prophylaxis. Continue on heparin. 8. Continue with physical therapy. Will consult Farm Truck Driver for discharge planning. cc: Rosa Uriarte MD MTDD
[2019-10-30] MEDS: LIPITOR NG SCH (21:00)
[2019-10-30] MEDS: DULCOLAX PR SCH (21:00)
[2019-10-31] MEDS: ATROVENT NEB INH SCH ×6 (03:16→22:58)
[2019-10-31] MEDS: XOPENEX NEB INH SCH ×6 (03:16→22:58)
[2019-10-31 06:01] LABS: HEMATOCRIT 23.6 % (42.0-52.0); HEMOGLOBIN 7.6 g/dL (14.0-18.0); MCH 27.9 PG (27-31); MCHC 32.2 g/dL (33-37); MCV 86.8 FL (81-99); MPV 11.4 FL (7.4-10.4); RBC 2.72 XMIL (4.7-6.1); RDW 14.4 % (11.5-14.5); WBC 7.53 X1000 (4.8-10.8)
[2019-10-31 06:18] LABS: ALBUMIN 2.3 g/dL (3.5-5.0); CALCIUM 7.2 mg/dL (8.8-10.2); CREATININE 6.4 mg/dL (0.7-1.2); PHOSPHORUS 4.3 mg/dL (2.7-4.5); POTASSIUM 4.9 mmol/L (3.5-5.1)
--- NOTE | 2019-10-31 07:39 | Diag Imaging Result Doc PS360 ---
EXAM: CHEST-1 VIEW INDICATION: pneumonia TECHNIQUE: One view COMPARISON: 10/28/2019 FINDINGS: The right Vas-Cath is in stable position. The right lower lung zone infiltrate is approximately stable. No new consolidation is identified. Cardiac silhouette is stable. IMPRESSION: Essentially stable chest. Electronically signed by Evans Subramanian 10/31/2019 7:36 AM
[2019-10-31] MEDS: PULMICORT INH SCH ×2 (08:30→19:05)
[2019-10-31] MEDS ORDERED: NS 2,000 ML MISC PRN (09:15)
[2019-10-31] MEDS ORDERED: HEPARIN IV PRN (09:15)
[2019-10-31] MEDS: PHOSLO NG SCH ×3 (12:40→16:53)
[2019-10-31] MEDS: SENOKOT PO SCH ×2 (12:40→21:13)
[2019-10-31] MEDS: LACTULOSE NG SCH ×2 (12:40→21:13)
[2019-10-31] MEDS: HEPARIN SUBQ SCH ×2 (12:41→21:13)
[2019-10-31] MEDS: SODIUM CHLORIDE 0.9% INJ SCH (12:41)
[2019-10-31] MEDS: PROTONIX IV SCH (12:41)
[2019-10-31] MEDS: ASPIRIN NG SCH (12:41)
[2019-10-31] MEDS: COLACE PO SCH ×2 (12:41→21:13)
[2019-10-31] MEDS: CATAPRES NG SCH ×2 (12:45→21:14)
[2019-10-31] MEDS: COREG PO SCH ×2 (12:45→21:14)
[2019-10-31] MEDS: MIRALAX PO SCH ×2 (12:46→21:11)
--- NOTE | 2019-10-31 14:23 | PROGRESS NOTE ---
DATE: 10/31/2019 SUBJECTIVE: The patient is sitting up, eating. He states that he has occasional abdominal discomfort. OBJECTIVE: Vital Signs: Temperature 97.4 degrees, blood pressure 133/64, heart rate 83, respirations 15, O2 saturation is 97% on 2 L nasal cannula. General: This is a chronically ill- appearing, elderly male sitting up in bed, in no acute distress. Heart: S1, S2 normal. Regular rate and rhythm. Lungs: Equal air entry bilaterally. No wheezing. No rales. Abdomen: Positive bowel sounds. Soft, nontender, nondistended. Extremities: No edema, no cyanosis. Neurologic: The patient is alert and oriented x3. Labs: White blood cell count 7.5, hemoglobin 7.6, hematocrit 23, platelets 216,000. Sodium 138, potassium 4.9, chloride 98, CO2 of 23, BUN 73, creatinine 6.4, glucose 97. Chest x-ray shows a right lower lung zone infiltrate. ASSESSMENT AND PLAN: 1. Acute hypoxemic respiratory failure status post extubation. Continue to treat the underlying pneumonia. 2. Right lower lobe pneumonia. Continue with antibiotic therapy, supplemental oxygen, and bronchodilator therapy. 3. Chronic kidney disease stage 5D. Management as per the cryptologic technician operator/analyst. 4. Anemia. The patient's hemoglobin and hematocrit are slowly trending down. We will continue to monitor and transfuse as needed. 5. Severe protein calorie malnutrition. Continue on meal supplements with each meal. 6. Bacteremia secondary to Streptococcus mitis. This is likely a contaminant. Repeat blood cultures remain negative. 7. Deconditioning. Physical therapy will be working with the patient. 8. Deep vein thrombosis prophylaxis. Continue on heparin. 9. Disposition. The patient will likely need inpatient rehab. account services manager will be talking to the patient and his about their options for rehab placement. cc: Rosa Uriarte MD MTDD
[2019-10-31] MEDS ORDERED: VANCOMYCIN 1 GM/NS 1 GM/250 ML IVPB IV ONE (17:00)
--- NOTE | 2019-10-31 17:09 | PROVIDER PROGRESS NOTE ---
Progress Note Dr. Garvin Progress Note/Pulmonary and or critical care Subjective: The patient is on dialysis. He appears sleeping. Objective: Vital Signs: 97.4 (No fever in last 24 hours), VT 83, RR 22, BP 133/64 and SaO2 96% on NC 2L. Physical Examination: General: Lying in bed with dialysis on. No acute distress noted. HEENT: Normocephalic. Trachea midline. Chest: Even and unlabored. Symmetrical excursion. Clear to auscultation with diminished breathing sounds bilaterally. CVS: S1 and S2 appreciated. Abdomen: Soft. Non-distended. Normoactive bowel sounds noted. Extremities: No edema. No cyanosis. No clubbing. Neuro: Sleeping. Labs and Radiology: Laboratory Results 10/30/19 10/31/19 10/31/19 20:32 04:36 04:36 WBC 7.53 RBC 2.72 L Hgb 7.6 L Hct 23.6 L MCV 86.8 MCH 27.9 MCHC 32.2 L RDW Std Deviation 14.4 Plt Count 216 MPV 11.4 H Sodium 136 Potassium 4.9 Chloride 98 Carbon Dioxide 23 L Anion Gap 15 BUN 73 H Creatinine 6.4 H Estimated GFR/1.73 m2 10 BUN/Creatinine Ratio 11 Glucose 97 POC Glucose 128 H Calculated Osmolality 293 Calcium 7.2 L Phosphorus 4.3 Albumin 2.3 L 10/31/19 10/31/19 10/31/19 06:34 10:17 15:58 WBC RBC Hgb Hct MCV MCH MCHC RDW Std Deviation Plt Count MPV Sodium Potassium Chloride Carbon Dioxide Anion Gap BUN Creatinine Estimated GFR/1.73 m2 BUN/Creatinine Ratio Glucose POC Glucose 100 125 H 129 H Calculated Osmolality Calcium Phosphorus Albumin Assessment: Acute hypoxemic respiratory failure. Resolved. RLL pneumonia vs. atelectasis. Radiographically stable. Metabolic encephalopathy. ESRD s/p initiation of hemodialysis. Severe normocytic anemia. Hgb this morning 7.6. Plan: Supplemental oxygen as needed. Continue antibiotics including Meropenem and Vancomycin. Continue bronchodilators. He has been on bowel regimen including Colace, Lactulose and Miralax. Continue bowel regimen per Dr. Lugo. Continue routine dialysis per Dr. aGrcia. Continue GI and DVT prophylaxis. Continue incentive spirometer use routinely with deep breathing and coughing.
--- NOTE | 2019-10-31 18:36 | PROVIDER PROGRESS NOTE ---
Progress Note Subjective: He denies any complaints. He is drowsy, receiving dialysis. Objective: temperature 97.4, pulse 83, respirations 22, blood pressure 133/64, 02 sat 96% on 2 L nasal cannula. General: -[place] male lying in bed in no acute distress HEENT: normocephalic, atraumatic, pupils equal and reactive, mucous membranes dry. Skin: warm and dry Neck: supple, 6cm JVD Cardiovascular: S1S2. regular rate and rhythm. No murmur or gallop. Respiratory: coarse lung sounds anterior Abdomen: soft, nontender, nondistended. Bowel sounds present. : not inspected, mcelroy in place. Extremities: 1+ pitting edema to BLE Neurological: drowsy, oriented to person and place. Labs: WBC 7.53, hemoglobin 7.6, hematocrit 23.6, platelet count 216, sodium 136, potassium 4.9, chloride 98, carbon dioxide 23, BUN 73, creatinine 6.4. Intake 390, output 200. Impression: Chronic kidney disease stage 5D. He will have his routine hemodialysis with a 2K bath and attempt 2 L ultrafiltration for 3.5 hours. Blood pressure. Stable. Fluid volume. Euvolemic. Anemia. Low, stable. He does not meet transfusion criteria. Electrolytes. Stable. Acid base balance. Stable. Nutrition. Adequate. Medication review. No changes.
[2019-10-31] MEDS: PERIDEX MT SCH ×2 (19:14→21:14)
[2019-10-31] MEDS: DULCOLAX PR SCH (21:13)
[2019-10-31] MEDS: LIPITOR NG SCH (21:13)
[2019-11-01] MEDS: ATROVENT NEB INH SCH ×3 (03:37→11:06)
[2019-11-01] MEDS: XOPENEX NEB INH SCH ×3 (03:37→11:06)
[2019-11-01 05:24] LABS: HEMATOCRIT 21.4 % (42.0-52.0); MCH 28.3 PG (27-31); MCHC 32.7 g/dL (33-37); MCV 86.6 FL (81-99); RBC 2.47 XMIL (4.7-6.1); RDW 14.4 % (11.5-14.5); WBC 9.08 X1000 (4.8-10.8)
[2019-11-01 06:06] LABS: CREATININE 4.8 mg/dL (0.7-1.2); PHOSPHORUS 3.5 mg/dL (2.7-4.5); POTASSIUM 4.3 mmol/L (3.5-5.1)
[2019-11-01] MEDS: PULMICORT INH SCH ×2 (07:04→19:42)
[2019-11-01] MEDS: LACTULOSE NG SCH (10:14)
[2019-11-01] MEDS: ASPIRIN NG SCH (10:14)
[2019-11-01] MEDS: PHOSLO NG SCH (10:14)
[2019-11-01] MEDS: COREG PO SCH ×2 (10:14→20:09)
[2019-11-01] MEDS: PERIDEX MT SCH (10:14)
[2019-11-01] MEDS: MIRALAX PO SCH (10:15)
[2019-11-01] MEDS ORDERED: SODIUM CHLORIDE 0.9% INJ SCH (10:15)
[2019-11-01] MEDS: PROTONIX IV SCH ×2 (10:15→22:41)
[2019-11-01] MEDS: CATAPRES NG SCH ×2 (10:15→20:09)
[2019-11-01] MEDS ORDERED: PROTONIX IV SCH (10:15)
[2019-11-01] MEDS: COLACE PO SCH (10:15)
[2019-11-01] MEDS: SENOKOT PO SCH (10:16)
[2019-11-01] MEDS: HEPARIN SUBQ SCH ×2 (10:16→20:09)
[2019-11-01 11:02] LABS: IRON SATURATION 15 %; TIBC 134 ug/dL; TOTAL IRON 20 ug/dL (53-167); UNBOUND IRON 114 ug/dL (112-346)
[2019-11-01 11:45] LABS: FERRITIN 837 ng/mL (30-400)
--- NOTE | 2019-11-01 12:06 | PROGRESS NOTE ---
DATE: 11/01/2019 INTERVAL HISTORY: No acute events overnight. SUBJECTIVE: Mr. Chapman denies new complaints. He denies any chest pain, shortness of breath. He has been coughing and bringing up sputum, and I discussed with him about collecting the sputum for a sputum culture. We discussed about his hospital course, kidney function. I answered all of his questions. He denies any nausea, vomiting, abdominal pain. He is eating better. He states he was able to ambulate with physical therapy yesterday. OBJECTIVE: Vital Signs: Temperature 98.7 degrees, pulse 80, respiratory rate 16, blood pressure 134/65, saturating 98% on 2 liters nasal cannula. General: On physical examination, not in acute distress. HEENT: Oral cavity is moist. Lungs: Air entry bilaterally equal. No wheeze or rhonchi. He has inspiratory crackles on right infrascapular region. Cardiovascular: S1 and S2 normal. No murmur or gallop. He has a right-sided chest dialysis catheter. Abdomen: Soft, nontender. He has infraumbilical midline scar, which is well healed. Extremities: He has mild bilateral lower extremity edema. Neurological: He is alert and oriented x3. He was able to tell me about his past medical history. He could only remember past few days of current admission though. He is able to raise both upper extremities above ground level. He is able to raise both lower extremities above ground level as well. He was ticklish to Babinski. His reflexes are 2+ bilateral knee jerks and biceps. He probably has a mild left-sided flattening of the nasolabial fold and left droop. He could also have mild weakness of the left hip joint as compared to right, though it was inconsistent. His tongue appears midline. His speech is normal. LABS: Suggestive of WBC of 9000, hemoglobin 7, platelets 247,000. He has BUN of 53, creatinine 4.8, calcium of 7. Sputum culture on September was negative. IMAGING: Chest x-ray yesterday had right lung zone infiltrate. ASSESSMENT AND PLAN: 1. Right lower lung pneumonia. New sputum culture has been ordered. Continue intravenous vancomycin and meropenem after dialysis. His oxygen requirements are minimum. I will give him inhaled bronchodilators as needed. 2. Normocytic anemia. I will follow up with iron panel and fecal occult blood test. He is status post 2 units of blood transfusion since hospital admission. Based on iron panels, I will start repleting him through oral iron. I will keep him on intravenous pantoprazole every 12 hours until I get fecal occult blood test. 3. Chronic kidney disease stage 5D. He has a right-sided tunneled dialysis catheter and has been intermittently receiving hemodialysis. I will continue calcium acetate for hypocalcemia. His phosphorus has been within acceptable range. 4. Essential hypertension, currently well controlled on carvedilol and clonidine. 5. His acute encephalopathy on presentation and acute respiratory failure have resolved. Physical therapy has been working with him. Continue to monitor him as I workup his pneumonia and anemia. He would benefit from going to the rehab, and rehab institution has been following him. Plan of care discussed with Mr. Chapman. All of his questions have been answered. I may consider getting a head CT, as he had possibly left-sided facial droop and mild weakness of left hip joint. cc: Magno Wang MD
--- NOTE | 2019-11-01 13:24 | Diag Imaging Result Doc PS360 ---
EXAM: CT HEAD W/O CONTRAST HISTORY: Rule out right hemispheric CVA. TECHNIQUE: CT head without contrast COMPARISON: 10/22/2019 FINDINGS: No parenchymal hemorrhage. No epidural or subdural hematoma. No subarachnoid hemorrhage. There are chronic microvascular ischemic changes as well as atrophy. No mass identified on this noncontrasted exam. No hydrocephalus. No sinus opacification. IMPRESSION: 1.No hemorrhage 2.Atrophy and chronic microvascular ischemic changes This exam was performed using automated exposure control, adjustment of mA or kV according to patient size, and/or use of iterative reconstruction technique. Electronically signed by Darryl Da Silva 11/01/2019 1:21 PM
--- NOTE | 2019-11-01 16:17 | PROVIDER PROGRESS NOTE ---
Progress Note Subjective: He is sitting up in bed eating breakfast. He denies any complaints. Objective: temperature 98.7, pulse 80, respirations 16, blood pressure 134/65, o2 sat 98% on 2L NC General: -[place] male lying in bed in no acute distress HEENT: normocephalic, atraumatic, pupils equal and reactive, mucous membranes moist. Skin: warm and dry Neck: supple, external jugular vein distended Cardiovascular: S1S2. regular rate and rhythm. No murmur or gallop. Respiratory: coarse lung sounds anterior Abdomen: soft, nontender, nondistended. Bowel sounds present. : not inspected, mcelroy in place. Extremities: Trace pretibial edema to BLE Neurological: alert and oriented to person and place. Labs: WBC 9.08, hemoglobin seven, hematocrit 21.4, sodium 136, potassium 4.3, chloride 99, carbon dioxide 24, BUN 53, creatinine 4.8, intake 1850, output 9. Impression: Chronic kidney disease stage 5D. He had his routine hemodialysis treatment yesterday with a 909 mL ultrafiltration without any complications. He has no uremic complaints today. No change in plan. Blood pressure. Stable. Fluid volume. Euvolemic. Anemia. Low, he will need a PRBC transfusion. Also, occult stool for drop in H&H. Electrolytes. Stable. Acid base balance. Stable. Nutrition. Adequate.change diet to renal. Medication review. No changes.
[2019-11-01] MEDS: PHOSLO PO SCH ×2 (16:30)
--- NOTE | 2019-11-01 18:38 | PROVIDER PROGRESS NOTE ---
Progress Note Dr. Garvin Progress Note/Pulmonary and or critical care Subjective: The patient is lying in bed complaining of generalized abdominal discomfort. He is asking for apple sauce. He reports no nausea, constipation or diarrhea. He still has some dry cough occasionally. NO family at the bedside. Objective: Vital Signs: 98.7 (No fever in last 24 hours), ND 80, RR 16, BP 134/65 and SaO2 98% on NC 2L. Physical Examination: General: Lying in bed with dialysis on. No acute distress noted. HEENT: Normocephalic. Trachea midline. Chest: Even and unlabored. Symmetrical excursion. Clear to auscultation with diminished breathing sounds bilaterally. CVS: S1 and S2 appreciated. Abdomen: Soft. Non-distended. Normoactive bowel sounds noted. Extremities: No edema. No cyanosis. No clubbing. Neuro: Awake and alert. Answer simple questions. Follow simple commands. Labs and Radiology: Laboratory Results 10/31/19 11/01/19 11/01/19 21:34 04:40 04:40 WBC 9.08 RBC 2.47 L Hgb 7.0 L Hct 21.4 L MCV 86.6 MCH 28.3 MCHC 32.7 L RDW Std Deviation 14.4 Plt Count 247 MPV 11.0 H Sodium 136 Potassium 4.3 Chloride 99 Carbon Dioxide 24 L Anion Gap 13 BUN 53 H Creatinine 4.8 H Estimated GFR/1.73 m2 14 BUN/Creatinine Ratio 11 Glucose 107 H POC Glucose 185 H Calculated Osmolality 287 Calcium 7.0 L* Phosphorus 3.5 Iron TIBC % Saturation Unsat Iron Binding Ferritin Ugt-X-Kyhykcjybzq Pept Albumin 2.0 L Vitamin B12 Folate 11/01/19 11/01/19 11/01/19 04:40 04:40 04:40 WBC RBC Hgb Hct MCV MCH MCHC RDW Std Deviation Plt Count MPV Sodium Potassium Chloride Carbon Dioxide Anion Gap BUN Creatinine Estimated GFR/1.73 m2 BUN/Creatinine Ratio Glucose POC Glucose Calculated Osmolality Calcium Phosphorus Iron 20 L TIBC 134 % Saturation 15 Unsat Iron Binding 114 Ferritin 837 H Div-A-Rlodslgbymf Pept Albumin Vitamin B12 438 Folate 4.7 L 11/01/19 11/01/19 11/01/19 04:40 06:30 11:09 WBC RBC Hgb Hct MCV MCH MCHC RDW Std Deviation Plt Count MPV Sodium Potassium Chloride Carbon Dioxide Anion Gap BUN Creatinine Estimated GFR/1.73 m2 BUN/Creatinine Ratio Glucose POC Glucose 96 139 H Calculated Osmolality Calcium Phosphorus Iron TIBC % Saturation Unsat Iron Binding Ferritin Uit-Y-Judowsveqqq Pept 6240 H Albumin Vitamin B12 Folate 11/01/19 15:56 WBC RBC Hgb Hct MCV MCH MCHC RDW Std Deviation Plt Count MPV Sodium Potassium Chloride Carbon Dioxide Anion Gap BUN Creatinine Estimated GFR/1.73 m2 BUN/Creatinine Ratio Glucose POC Glucose 154 H Calculated Osmolality Calcium Phosphorus Iron TIBC % Saturation Unsat Iron Binding Ferritin Kvb-P-Iocqzfvwxpd Pept Albumin Vitamin B12 Folate Assessment: Acute hypoxemic respiratory failure. Resolved. RLL pneumonia vs. atelectasis. Radiographically stable. Metabolic encephalopathy. ESRD s/p initiation of hemodialysis. Severe normocytic anemia. Worsened. Hgb this morning 7.0. Plan: Supplemental oxygen as needed. Continue antibiotics including Meropenem and Vancomycin. Continue bronchodilators. Dr. Wang switched bronchodilators from scheduled to prn. Bowel regimen. Continue routine dialysis per Dr. Garcia. Continue GI and DVT prophylaxis. Continue incentive spirometer use routinely with deep breathing and coughing. We checked proBNP.
[2019-11-01] MEDS: DUONEB (A & A) INH PRN (19:42)
[2019-11-01] MEDS: DULCOLAX PR SCH (20:08)
[2019-11-01] MEDS: LIPITOR NG SCH (20:08)
[2019-11-02 05:37] LABS: HEMATOCRIT 23.7 % (42.0-52.0); HEMOGLOBIN 7.4 g/dL (14.0-18.0); MCH 26.7 PG (27-31); MCHC 31.2 g/dL (33-37); MCV 85.6 FL (81-99); MPV 10.6 FL (7.4-10.4); RBC 2.77 XMIL (4.7-6.1); RDW 14.3 % (11.5-14.5); WBC 9.74 X1000 (4.8-10.8)
[2019-11-02] MEDS ORDERED: HEPARIN IV PRN (06:15)
[2019-11-02] MEDS ORDERED: TIGHT: 0.2 ML/HR FOR DIALYSIS MISC PRN (06:15)
[2019-11-02] MEDS ORDERED: NS 2,000 ML MISC PRN (06:15)
[2019-11-02 06:26] LABS: ALBUMIN 2.3 g/dL (3.5-5.0); CALCIUM 7.3 mg/dL (8.8-10.2); CREATININE 6.4 mg/dL (0.7-1.2); PHOSPHORUS 3.8 mg/dL (2.7-4.5)
--- NOTE | 2019-11-02 07:21 | Diag Imaging Result Doc PS360 ---
EXAM: CHEST-1 VIEW HISTORY: SOB TECHNIQUE: Single view COMPARISON: 10/31/2019 FINDINGS: The lungs are well expanded. There are infiltrates in the right lung. These are questionably slightly less prominent than the right lower lobe. No cardiomegaly. No change in the right jugular line. Trace right effusion. IMPRESSION: Slight interval improvement Electronically signed by Darryl Da Silva 11/02/2019 7:19 AM
[2019-11-02] MEDS: DUONEB (A & A) INH PRN ×2 (07:46→20:16)
[2019-11-02] MEDS: PULMICORT INH SCH ×2 (07:46→20:16)
--- NOTE | 2019-11-02 08:16 | PROGRESS NOTE ---
DATE: 11/02/2019 SUBJECTIVE: He is lying in bed resting, aroused to verbal stimuli. He complained of minor left hip pain. No other complaints noted. OBJECTIVE: Current vital signs: Temperature 98.4 degrees, pulse 75, respirations 19, blood pressure 154/71, O2 saturation 99% on 2 L nasal cannula. General: - [place] male lying in bed in no acute distress. HEENT: Normocephalic, atraumatic, pupils equal and reactive, mucous membranes moist. Skin: Warm and dry. Neck: Supple, external jugular vein distended with hepatojugular reflux. Cardiovascular: S1-S2. Regular rate and rhythm. No murmur or gallop noted. PMI displaced. Respiratory: Coarse bilaterally anteriorly. Abdomen: Soft, nontender, nondistended. Bowel sounds present. : Not inspected. Extremities: No clubbing, cyanosis, or edema noted. Neurological: Alert and oriented to person, place, and time. LABORATORY: WBC 9.74, hemoglobin 7.4, hematocrit 23.7, platelet count 299,000. Sodium 136, potassium 5.0, chloride 99, carbon dioxide 24, anion gap 13, BUN 72, creatinine 6.4. Intake 600, output 300. IMPRESSION: 1. Chronic kidney disease stage 5D. He will have his routine hemodialysis with a 2K bath and attempt ultrafiltration to last outpatient dry weight. No change in plan. 2. Blood pressure. Stable. 3. Fluid volume. Slightly expanded. He will have his routine hemodialysis treatment today. 4. Anemia. Low. Occult stool and anemia panel ordered. Continue to monitor. 5. Electrolytes. These are stable. 6. Acid-base balance. Stable. 7. Nutrition. Adequate. 8. Medication review. Aspirin 81 mg p.o. and MiraLAX added. 9. Disposition. Commodity Merchant attempting to place at [facility]. Dictated by JULIETTE Mcclendon for Chavez Garcia MD Face to face encounter, data reviewed, discussed with Luiz Campbell on 11/01/18. I agree with the above assessment and plan of care. cc: Chavez Garcia MD [facility]
[2019-11-02] MEDS ORDERED: ASPIRIN PO SCH (09:00)
[2019-11-02] MEDS ORDERED: ULTRAM PO PRN (11:31)
[2019-11-02] MEDS: PHOSLO PO SCH ×3 (11:56→17:18)
[2019-11-02] MEDS: COREG PO SCH ×2 (11:57→21:45)
[2019-11-02] MEDS: PROTONIX IV SCH ×2 (11:58→21:39)
[2019-11-02] MEDS: MIRALAX PO SCH (11:59)
[2019-11-02] MEDS: HEPARIN SUBQ SCH ×2 (11:59→21:44)
--- NOTE | 2019-11-02 12:06 | PROGRESS NOTE ---
DATE: 11/02/2019 INTERVAL HISTORY: No acute events overnight. SUBJECTIVE: Mr. Chapman denies any new complaints. I am seeing him in dialysis. He had a bowel movement. Unfortunately, occult blood was not tested. His hemoglobin appears stable at 7.4. He denies any chest pain or shortness of breath. He denies any cough. REVIEW OF SYSTEMS: Negative for chest pain, shortness of breath, or cough. Negative for nausea, vomiting. Negative for abdominal pain. Positive for a bowel movement. Negative for constipation. VITALS: Temperature of 98.6 degrees, pulse 79, respiratory 14, blood pressure 114/74 saturating 99% on 2 L nasal cannula. PHYSICAL EXAMINATION: He is off the dialysis machine, not in acute distress. Oral cavity is moist.Lungs: Air entry bilaterally equal. No wheeze or rhonchi. Inspiratory crackles on right infrascapular region is present. Cardiovascular: S1, S2 normal. No murmur or gallop. He has a right-sided chest dialysis catheter hooked up with the dialysis machine. Abdomen: Soft, nontender. Infraumbilical midline scar, which was healed on my previous examination. He does not have lower extremity edema. He is alert and oriented x3. Input and output suggest one bowel movement. He was able to eat 50% of his meals. LABS: Suggestive of WBC of 9.7, hemoglobin 7.4, platelet 299,000, BUN 72, creatinine 6.4, blood glucose 135, calcium is 7.3, phosphorus is 3.8. Continues to have elevated proBNP of 6000. No new microbiological or data. IMAGING: Head CT yesterday did not have any hemorrhage. He had atrophy and chronic microvascular ischemic changes. Chest x-ray this morning suggests slight interval improvement in right lung infiltrate. ASSESSMENT AND PLAN: 1. Right lower lung pneumonia. The patient has been not been able to collect sputum, though currently he denies any cough. Continue intravenous vancomycin and intravenous meropenem after dialysis. Day one of antibiotics probably was around October 26. I will stop antibiotics in next 48 hours and monitor him for any signs of worsening infection. His oxygen requirements are stable. He does not have leukocytosis or fever. 2. Normocytic anemia. Iron panel suggests his ferritin level was 837 and he had adequate saturation. Iron deficiency is less likely. I will appreciate Nephrology recommendation about need for erythropoietin. Continue intravenous pantoprazole every 12 hours until fecal occult blood test collected. 3. CKD stage 5, receiving intermittent dialysis through right-sided tunneled dialysis catheter. Continue calcium acetate for hypocalcemia and hyperphosphatemia, which is currently stable. Appreciate recommendation regarding need for erythropoietin for his anemia. 4. Essential hypertension, well controlled on carvedilol and clonidine. 5. His acute encephalopathy on presentation and acute respiratory failure have resolved. I will resume his home Plavix and tramadol as needed. DISPOSITION: The patient should be medically ready for discharge once we make sure his anemia remains stable and he has been off antibiotics. Based on that, I would anticipate discharge in the later part of the week. cc: Magno Wang MD MTDD
[2019-11-02] MEDS ORDERED: MERREM 1 GM in NS 50 ML IV ONE (17:00)
[2019-11-02] MEDS ORDERED: VANCOMYCIN 1 GM/NS 1 GM/250 ML IVPB IV ONE (18:00)
--- NOTE | 2019-11-02 18:36 | PROVIDER PROGRESS NOTE ---
Progress Note Dr. Garvin Progress Note/Pulmonary and or critical care Subjective: The patient is on dialysis. He has no complaint at this time. Objective: Vital Signs: 98.4 (No fever in last 24 hours), MD 75, RR 19, BP 154/71 and SaO2 99% on NC 2L. Physical Examination: General: Lying in bed with dialysis on. No acute distress noted. HEENT: Normocephalic. Trachea midline. Chest: Even and unlabored. Symmetrical excursion. Clear to auscultation with diminished breathing sounds bilaterally. CVS: S1 and S2 appreciated. Abdomen: Soft. Non-distended. Non-tender. Normoactive bowel sounds noted. Extremities: No edema. No cyanosis. No clubbing. Neuro: Awake and alert. Answer simple questions. Follow simple commands. Labs and Radiology: Laboratory Results 11/01/19 11/02/19 11/02/19 20:44 04:45 04:45 WBC 9.74 RBC 2.77 L Hgb 7.4 L Hct 23.7 L MCV 85.6 MCH 26.7 L MCHC 31.2 L RDW Std Deviation 14.3 Plt Count 299 MPV 10.6 H Sodium 136 Potassium 5.0 D Chloride 99 Carbon Dioxide 24 L Anion Gap 13 BUN 72 H Creatinine 6.4 H Estimated GFR/1.73 m2 10 BUN/Creatinine Ratio 11 Glucose 91 POC Glucose 136 H Calculated Osmolality 293 Calcium 7.3 L Phosphorus 3.8 Xpu-B-Zpluhjeahqw Pept Albumin 2.3 L 11/02/19 11/02/19 11/02/19 04:45 05:35 10:47 WBC RBC Hgb Hct MCV MCH MCHC RDW Std Deviation Plt Count MPV Sodium Potassium Chloride Carbon Dioxide Anion Gap BUN Creatinine Estimated GFR/1.73 m2 BUN/Creatinine Ratio Glucose POC Glucose 132 H 135 H Calculated Osmolality Calcium Phosphorus Vys-V-Thbvzxshtdx Pept 6156 H Albumin 11/02/19 15:43 WBC RBC Hgb Hct MCV MCH MCHC RDW Std Deviation Plt Count MPV Sodium Potassium Chloride Carbon Dioxide Anion Gap BUN Creatinine Estimated GFR/1.73 m2 BUN/Creatinine Ratio Glucose POC Glucose 168 H Calculated Osmolality Calcium Phosphorus Bkt-L-Urbubbyygli Pept Albumin Assessment: Acute hypoxemic respiratory failure. Resolved. RLL pneumonia vs. atelectasis. CXR this morning shows slight interval improvement. Metabolic encephalopathy. Stable. ESRD s/p initiation of hemodialysis. Severe normocytic anemia. Occult blood screening ordered per Dr. Wang. Plan: Weaning oxygen as tolerated. Continue antibiotics including Meropenem and Vancomycin. Continue bronchodilators prn. Bowel regimen. Continue routine dialysis per Dr. Garcia. Continue GI and DVT prophylaxis. Continue incentive spirometer use routinely with deep breathing and coughing.
[2019-11-02] MEDS: CATAPRES PO SCH (21:44)
[2019-11-02] MEDS: DULCOLAX PR SCH (21:45)
[2019-11-02] MEDS: LIPITOR NG SCH (21:45)
[2019-11-03 05:22] LABS: HEMATOCRIT 22.1 % (42.0-52.0); HEMOGLOBIN 7.1 g/dL (14.0-18.0); MCHC 32.1 g/dL (33-37); MPV 10.3 FL (7.4-10.4); RBC 2.54 XMIL (4.7-6.1); RDW 14.3 % (11.5-14.5); WBC 8.84 X1000 (4.8-10.8)
[2019-11-03] MEDS: MIRALAX PO SCH (08:38)
[2019-11-03] MEDS: HEPARIN SUBQ SCH ×2 (08:40→20:24)
--- NOTE | 2019-11-03 09:21 | NEPHROLOGY PROGRESS NOTE ---
DATE: 11/03/2019 TIME OF SERVICE: 0630 hours. SUBJECTIVE: The patient is lying in bed, awake. He denies any complaints. He voices tolerating dialysis yesterday without any complications. OBJECTIVE: Vital Signs: Temperature 98.9 degrees, pulse 78, respirations 16, blood pressure 124/56, and O2 saturation 98% on 2 liters nasal cannula. General: An male lying in bed, in no acute distress. HEENT: Normocephalic, atraumatic. Pupils equal and reactive. Mucous membranes moist. Skin: Warm and dry. Neck: Supple, external jugular vein distended in semi-Pratt position. No hepatojugular reflex today. Cardiovascular: S1 and S2. Regular rate and rhythm. No murmur or gallop noted. PMI displaced. Respiratory: Coarse bilaterally anteriorly. Brown tinged sputum noted at bedside. Abdomen: Soft, nontender, nondistended. Bowel sounds hypoactive. Genitourinary: Not inspected. Extremities: No clubbing or cyanosis. Trace edema to the lower extremities and hips. Neurological: Alert and oriented to person, place, and time. LABS: WBC 8.84, hemoglobin 7.1, hematocrit 22.1, platelet count 349,000. Intake 1300, output 3099. IMPRESSION AND PLAN: 1. Chronic kidney disease stage 5D. He had his routine hemodialysis treatment yesterday with a 2999 mL ultrafiltration. He tolerated it without any complications. No change in plan. 2. Blood pressure. Stable. 3. Fluid volume. Euvolemic. 4. Anemia. Low. Still waiting for an occult stool sample. Spoke with staff about this today. I ordered a type and screen. He will get 1 unit of packed red blood cells tomorrow with his hemodialysis treatment. 5. Electrolytes. These are stable on yesterday's labs. 6. Acid-base balance. Stable on last labs. 7. Nutrition. Improved. 8. Medication review. No changes. I would like to thank you for allowing us to follow with this patient. Dictated by JULIETTE Mcclendon for Chavez Garcia MD Face to face encounter, data reviewed, discussed with Luiz Campbell on 11/03/19. I agree with the above assessment and plan of care. cc: Chavez Garcia MD [facility]
[2019-11-03] MEDS: PHOSLO PO SCH ×3 (09:26→17:04)
[2019-11-03] MEDS: COREG PO SCH ×3 (09:27→20:26)
[2019-11-03] MEDS: CATAPRES PO SCH (09:27)
[2019-11-03] MEDS: PLAVIX PO SCH (09:28)
[2019-11-03] MEDS: PROTONIX IV SCH (10:25)
[2019-11-03] MEDS: PULMICORT INH SCH ×2 (10:53→22:20)
[2019-11-03] MEDS: DUONEB (A & A) INH PRN (10:53)
[2019-11-03] MEDS ORDERED: COREG PO SCH (16:54)
--- NOTE | 2019-11-03 17:27 | PROVIDER PROGRESS NOTE ---
Progress Note Dr. Garvin Progress Note/Pulmonary and or critical care Subjective: The patient is lying in bed on his right side. He is on room air. He appears sleeping, but easily arousable. He states he has no complaint and he is fine. Objective: Vital Signs: 98.9 (No fever in last 24 hours), AL 78, RR 16, BP 124/56 and SaO2 98% on NC 2L. Physical Examination: General: Lying in bed. No acute distress noted. HEENT: Normocephalic. Trachea midline. Chest: Even and unlabored. Symmetrical excursion. Mild inspiratory crackles in RLL with diminished breathing sounds bilaterally. CVS: S1 and S2 appreciated. Abdomen: Soft. Non-distended. Non-tender. Normoactive bowel sounds noted. Extremities: No edema. No cyanosis. No clubbing. Neuro: Awake and alert. Answer simple questions. Follow simple commands. Labs and Radiology: Laboratory Results 11/02/19 11/03/19 11/03/19 20:37 04:40 04:40 WBC 8.84 RBC 2.54 L Hgb 7.1 L Hct 22.1 L MCV 87.0 MCH 28.0 MCHC 32.1 L RDW Std Deviation 14.3 Plt Count 349 MPV 10.3 POC Glucose 137 H Blood Type B POSITIVE Antibody Screen NEGATIVE 11/03/19 11/03/19 11/03/19 05:42 10:57 16:14 WBC RBC Hgb Hct MCV MCH MCHC RDW Std Deviation Plt Count MPV POC Glucose 99 125 H 122 H Blood Type Antibody Screen Assessment: Acute hypoxemic respiratory failure. Resolved. RLL pneumonia vs. atelectasis. CXR this morning shows slight interval improvement. Metabolic encephalopathy. Stable. ESRD s/p initiation of hemodialysis. Severe normocytic anemia. Hgb 7.1 this morning. Occult blood screening negative noted. Plan: Weaning oxygen as tolerated. Continue antibiotics including Meropenem and Vancomycin. On Day 7. Continue bronchodilators prn. Bowel regimen. Continue routine dialysis per Dr. Garcia. Continue GI and DVT prophylaxis. Continue incentive spirometer use routinely with deep breathing and coughing.
[2019-11-03] MEDS ORDERED: ULTRAM PO ONE (17:44)
--- NOTE | 2019-11-03 18:10 | PROGRESS NOTE ---
DATE: 11/03/2019 INTERVAL HISTORY: No acute events overnight. SUBJECTIVE: Mr. Chapman is complaining of right foot pain, but otherwise denies any chest pain, shortness of breath, or cough. I discussed with him about rehab and he is agreeable to go to rehab. VITAL SIGNS: Temperature 99.6 degrees, pulse 80, respiratory 18, blood pressure 108/50, saturating 99% on 1 L nasal cannula. PHYSICAL EXAMINATION: General: Not in acute distress. He appears to have protein energy malnutrition. HEENT: Oral cavity is moist. Lungs: Air entry bilaterally equal. He has crackles on in the right infrascapular region. No wheeze or rhonchi. Cardiovascular: S1, S2 normal. No murmur or gallop. He has a right-sided chest dialysis catheter which is tunneled. Abdomen: Soft, nontender. Infraumbilical scar of previous abdominal surgery. Extremities: No lower extremity edema. He is complaining of some tenderness over the forefoot on the right side. Neurologic: He is alert and oriented x3. He had a bowel movement and he ate 75% of his meals. LABS: Suggestive of hemoglobin of 7.5, platelet 349,000. No BMP today. MICROBIOLOGY: Stool occult blood test was negative. IMAGING: No new imaging today. ASSESSMENT: 1. Right lower lung pneumonia. 2. Normocytic anemia. 3. Chronic kidney disease stage 5, receiving intermittent hemodialysis currently on Thursday, Thursday, Thursday schedule. 4. Essential hypertension and now hypotension. 5. Acute respiratory failure and acute encephalopathy on presentation, now resolved. PLAN: I will stop his intravenous antibiotics tonight and start him on oral Levaquin renally dosed. I will continue him on atorvastatin and home Plavix, as well as heparin for DVT prophylaxis. He is on inhaled bronchodilators as needed as well as calcium acetate for hypocalcemia with hyperphosphatemia. DISPOSITION: I discussed with the patient about his multiple medical issues including respiratory failure on presentation, need for intermittent hemodialysis, and need for getting stronger and he agrees to go to rehab. Social Work team has been informed about it. Depending on rehab bed availability, I would anticipate discharge in next 24 to 48 hours. The patient is in agreement with the plan. cc: Magno Wang MD
[2019-11-03] MEDS: LIPITOR NG SCH (20:24)
[2019-11-03] MEDS: DULCOLAX PR SCH (20:24)
[2019-11-04] MEDS: DUONEB (A & A) INH PRN ×3 (03:15→16:16)
[2019-11-04] MEDS ORDERED: TIGHT: 0.2 ML/HR FOR DIALYSIS MISC PRN (06:25)
[2019-11-04] MEDS ORDERED: HEPARIN IV PRN (06:25)
[2019-11-04] MEDS ORDERED: NS 2,000 ML MISC PRN (06:25)
[2019-11-04] MEDS: MIRALAX PO SCH (08:29)
[2019-11-04] MEDS: HEPARIN SUBQ SCH ×2 (08:30→20:11)
[2019-11-04] MEDS: COREG PO SCH ×2 (08:30→20:10)
[2019-11-04] MEDS: PHOSLO PO SCH ×3 (08:30→17:20)
[2019-11-04] MEDS: PLAVIX PO SCH (08:31)
[2019-11-04] MEDS: PULMICORT INH SCH (09:22)
--- NOTE | 2019-11-04 10:22 | NEPHROLOGY PROGRESS NOTE ---
DATE: 11/04/2019 SUBJECTIVE: Patient resting in bed. States he thinks he will go to rehab today. OBJECTIVE: Vital Signs: Temperature 98 degrees, pulse 71, respiratory rate 18, blood pressure 124/59. Intake 480 mL, output 200 mL. General: Elderly gentleman resting in bed, awake, alert, no acute distress. HEENT: Normocephalic, atraumatic. DAVIDSON. Neck: Supple. No JVD. Cardiovascular: Regular rate and rhythm. Pulmonary: Clear bilaterally. Decreased breath sounds. Abdomen: Soft. Positive bowel sounds. : Not inspected. Minimal void. Extremities: No clubbing, cyanosis. Trace edema. Integumentary: Skin is warm and dry. Neurologic: Nonfocal. LABORATORY DATA: Hemoglobin 7.1. His potassium yesterday was 5.0. ASSESSMENT AND PLAN: 1. Chronic kidney disease VD. Routinely dialyzes Thursday, Thursday, Thursday. We will dialyze him today on a 2K bath UF to dry weight 3.5 hour treatment. I understand he goes to rehab today. We need to keep him on his routine schedule. Addedum: Determined that patient is now a TTS schedule. Will forgo dialysis today to allow for expedition of discharge. He is to present to [facility] tomorrow. aa 2. Electrolytes, acid-base balance. These have been acceptable. See #1 for plan. 3. Anemia. He should receive blood to be given on dialysis today. 4. Medication review. No changes. 5. Disposition. The patient can be discharged to rehab at the discretion of the primary. Dictated by JULIETTE Robb for Chavez Garcia MD cc: Chavez Garcai MD [facility]
--- NOTE | 2019-11-04 10:31 | Diag Imaging Result Doc PS360 ---
CHEST-2 VIEWS - 11/04/2019 INDICATION: Follow up Pneumonia COMPARISON: 11/02/2019 FINDINGS: There is some slight worsening in nonspecific infiltrate or atelectasis at the left lung base. There is stable cardiomegaly and pulmonary vascular congestion. Stable hazy diffuse infiltrates throughout the right lung. Stable dialysis catheter on the right side in good position. IMPRESSION: Slight worsening nonspecific infiltrate or atelectasis in the left lung base. Electronically signed by René Jesus 11/04/2019 10:29 AM
--- NOTE | 2019-11-04 12:41 | PROGRESS NOTE ---
DATE: 11/04/2019 INTERVAL HISTORY: No acute events overnight. The patient is scheduled to go for dialysis today. SUBJECTIVE: The patient denies chest pain or shortness of breath. He is coughing occasional greenish sputum. Previously, sputum culture was unremarkable. He is breathing well on nasal cannula. He denies nausea, vomiting, or abdominal pain. He is making urine to 2 to 3 times a day. He has regular bowel movements. OBJECTIVE: Vital Signs: Temperature 98.1 degrees, pulse 81, respiratory 16, blood pressure 140/60, saturating 94% on 1 L nasal cannula. General: Not in any acute distress. HEENT: Oral cavity is moist. Lungs: Adequate air entry on left hemithorax. Inspiratory crackles and mildly decreased air entry in right infrascapular region. Cardiovascular: S1, S2 normal. No murmur or gallop. Abdomen: Soft, nontender. No lower extremity edema. He has a right-sided chest dialysis catheter. Neurologic: He is alert and oriented x3. LABORATORY: Hemoglobin of 7.1 and platelet of 349,000. His BUN is 72, creatinine 6.4, blood glucose 118. Microbiology: Stool occult blood test was negative. IMAGING: Chest x-ray this morning suggests slight worsening nonspecific infiltrate. ASSESSMENT AND PLAN: 1. Right lower lung pneumonia. 2. Normocytic anemia with negative fecal occult blood test. 3. CKD stage 5 on intermittent hemodialysis Thursday, Thursday, Thursday with hypocalcemia. 4. Essential hypertension. 5. Acute respiratory failure. 6. Acute encephalopathy on presentation. PLAN: The patient's antibiotics have been changed to oral Levaquin that he should get every 48 hours. I will continue him on his home clopidogrel as well as atorvastatin. The dose of which is decreased to 20 mg at the time of discharge. Continue inhaled bronchodilators as needed. The patient is likely to receive blood transfusion during dialysis today. DISPOSITION: Patient is agreeable to go to the rehab. Ambulatory Services Representative team has been informed, and working on rehab. Based on that, potentially planning discharge today or tomorrow. cc: Magno Wang MD
--- NOTE | 2019-11-04 15:18 | DISCHARGE SUMMARY ---
ADMISSION DATE: 10/22/2019 DISCHARGE DATE: 11/04/2019 DISCHARGE DISPOSITION: Rehab. DISCHARGE CONDITION: Hemodynamically stable. The patient denies any chest pain or shortness of breath. His oxygen requirements are stable. He is getting intermittent hemodialysis Thursday, Thursday, Thursday. DISCHARGE DIAGNOSES: 1. Acute respiratory failure due to profound uremia and metabolic encephalopathy. 2. Acute encephalopathy, likely due to uremia with BUN of 117 on presentation and creatinine of 10.8. 3. Acute kidney injury on chronic kidney disease stage 4 on presentation, now progression to chronic kidney disease stage 5 requiring intermittent hemodialysis. 4. Lactic acidosis on presentation. 5. Normocytic anemia due to chronic kidney disease. 6. Type 2 myocardial infarction in the setting of acute kidney injury and multiple metabolic derangements. 7. Hypocalcemia and hyperphosphatemia due to chronic kidney disease. 8. Acute respiratory failure due to right lower lobe pneumonia. OTHER DIAGNOSES: 1. History of chronic kidney disease. 2. History of essential hypertension. 3. History of chronic GERD. 4. History of chronic obstructive pulmonary disease. 5. History of benign prostatic hypertrophy. 6. History of transient ischemic attack. DISCHARGE MEDICATIONS: 1. Dutasteride 0.5 mg daily. 2. Clopidogrel 75 mg daily. 3. Atorvastatin 20 mg at nighttime. 4. Carvedilol 12.5 mg b.i.d. The dose needs to be adjusted based on blood pressure response. 5. DuoNeb 3 mL inhaled every six hours as needed for shortness of breath. 6. Levofloxacin 500 mg every 48 hours for a total of three doses. 7. MiraLAX 17 grams daily. 8. Calcium acetate 667 mg t.i.d. with meals for hyperphosphatemia and hypocalcemia. 9. Acetaminophen 650 mg every six hours as needed for fever or pain less than 7 out of 10. 10. Tramadol 50 mg every eight hours as needed for pain more than 7 out of 10. VITALS: At the time of dictation, temperature 98.1 degrees, pulse 81, respiratory rate 16, blood pressure 140/67, saturating 94% on 1 L nasal cannula. PHYSICAL EXAMINATION: General: Mr. Chapman is not in acute distress. Mouth: Oral cavity is moist. Lungs: Decreased air entry with inspiratory crackles on right infrascapular region. Otherwise, adequate air entry without any wheeze or rhonchi. Heart/Chest: S1, S2 normal. No murmur or gallop. He has a right-sided chest tunneled dialysis catheter. Abdomen: Soft, nontender. Extremity: No edema. Neurologic: He was alert and oriented x3. LABS: At the time of discharge WBC 8.8, hemoglobin 10.1, platelet 349,000. Blood glucose 118, BUN 72, creatinine 6.4. Microbiology during hospital admission - one blood culture was growing Streptococcus mitis or Streptococcus oralis, which was thought to be a contaminant as three other blood cultures were negative. Stool occult blood test was negative. Sputum culture did not have any growth. SIGNIFICANT IMAGIN. During hospital admission head CT on 10/22/2019 did not have any acute hemorrhage. It had chronic microvascular ischemic changes and generalized atrophy. 2. Chest x-ray on 10/22/2019 did not have any infiltrate, but the endotracheal tube was in good position. 3. Carotid Doppler study had mild degree of atherosclerotic changes in the bilateral carotid artery systems with antegrade vertebral of about 0 to 39 percent stenosis of the carotids. 4. Echocardiogram had ejection fraction of 55% without any evidence of left ventricular hypertrophy or any other segmental abnormality. Right heart structures were difficult to visualize. 5. Chest x-ray on 10/27/2019 had worsened atelectasis versus pneumonia affecting right lung dominguez. 6. Abdomen x-ray on 10/27/2019 had constipation as well as moderate gaseous distention of colon. 7. Head CT on 11/01/2019 did not have any parenchymal hemorrhage. No epidural or subdural hematoma. No subarachnoid hemorrhage and chronic microvascular ischemic changes were noted without any hydrocephalus or sinus opacification. 8. Electrocardiogram on 10/22/2019 had normal sinus rhythm, possible left atrial enlargement, left anterior fascicular block. PROCEDURES DURING HOSPITAL ADMISSION: On 10/25/2019 patient underwent ultrasound-guided right internal jugular vein port placement with fluoroscopy for dialysis. HOSPITAL COURSE SUMMARY: Mr. Chapman is an 84-year-old man with the above- mentioned past medical history of chronic kidney disease stage 4 to stage 5, who was brought into the hospital by ambulance because of altered mental status. Apparently, patient used to live with his who had supposedly dementia. On the day of presentation the patient did not turn up for taoist and patient's sister found him altered. In the emergency room he was found to be obtunded and had right-sided gaze, so he was intubated for airway protection and was admitted to ICU for further management. In the emergency room, he was found to have temperature of 98.7 degrees, pulse of 105, his blood pressure was 200/120. His initial labs had hemoglobin of 8.4, platelet 397,000, WBC 7.9. His potassium was 6.8, sodium 141, BUN of 117, creatinine of 10.8. His magnesium was 1 and his blood glucose was 103. It was thought the patient's presentation was related to acute kidney injury on chronic kidney disease stage 4, leading to uremia and uremic encephalopathy. He was initially managed on the ventilator and multiple medications to correct his electrolyte abnormality and Nephrology team was consulted. Apparently, patient was being followed up by Nephrology outpatient for his chronic kidney disease, however, he had deferred and was not very amenable to dialysis. However, considering his profound life-threatening metabolic derangement, family had decided to start him on dialysis, so eventually he was started on dialysis. With dialysis the patient's clinical condition improved. His mental status improved. He was able to be extubated and since then he has been getting intermittent hemodialysis and has been tolerating well. Plan is to continue hemodialysis through right-sided tunneled catheter. Currently, patient is alert and oriented x3. At the time of discharge, the patient was also receiving treatment for right lung pneumonia. He initially received intravenous antibiotics and his oxygen requirements were stable and WBC count was also stable. It was changed to oral to complete as an outpatient. The patient also had developed anemia during hospital admission and it was thought to be related to anemia of chronic kidney disease. He required a total of three units of blood transfusion during hospital admission so far and should have outpatient CBC. TIME SPENT: 35 minutes were spent in discharging this patient. Plan of care was extensively discussed with the patient. All of his questions were answered. The patient should continue to receive physical therapy. cc: Magno Wang MD
--- NOTE | 2019-11-04 16:03 | PROVIDER PROGRESS NOTE ---
Progress Note Progress Note Dr. Garvin Progress Note/Pulmonary and or critical care Subjective: No complaints voiced. Physical Examination: Vital Signs- T-98.0, RR-18, BP-130/71, O2-98% O2 @ 1L/NC General: Lying in bed. No acute distress noted. HEENT: Normocephalic. Trachea midline. Chest: Even and unlabored. Symmetrical excursion. Mild inspiratory crackles in RLL with diminished breathing sounds bilaterally. CVS: S1 and S2 appreciated. Abdomen: Soft. Non-distended. Non-tender. Normoactive bowel sounds noted. Extremities: No edema. No cyanosis. No clubbing. Neuro: Awake and alert. Answer simple questions. Follow simple commands. Labs and [facility]iolo Laboratory Results 11/03/19 11/03/19 11/03/19 04:40 16:14 20:45 POC Glucose 122 H 135 H Blood Type B POSITIVE Antibody Screen NEGATIVE Crossmatch See Detail 11/04/19 11/04/19 11/04/19 05:56 11:01 16:07 POC Glucose 86 118 H 144 H Blood Type Antibody Screen Crossmatch Assessment: Acute hypoxemic respiratory failure. Resolved. RLL pneumonia vs. atelectasis. Last CXR showed improvement. Metabolic encephalopathy. Stable. ESRD s/p initiation of hemodialysis. Severe normocytic anemia. Occult blood screening negative noted. Plan: Weaning oxygen as tolerated. Continue antibiotics including Meropenem and Vancomycin. On Day 7. Continue bronchodilators prn. Bowel regimen. Continue routine dialysis per Dr. Garcia. Continue GI and DVT prophylaxis. Continue incentive spirometer use routinely with deep breathing and coughing.
[2019-11-04] MEDS ORDERED: NS 500 ML ONE (16:48)
[2019-11-04] MEDS ORDERED: LEVAQUIN PO SCH (18:00)
[2019-11-04] MEDS: DULCOLAX PR SCH (20:10)
[2019-11-04] MEDS: LIPITOR NG SCH (20:10)
[2019-11-04 20:33] VITALS: BP 153/80
== END 2019-11-04 20:45 | DRG 208 ==
LOC: SUPCPDRO → ED 14:34 → SUATTDRO 20:10 → ICU 20:10 → 1N 10-28 15:22
PROVIDERS: ATTEND Internal Medicine